=== PATIENT | male | born 1940 | race American Indian/Alaskan Native ===

== ENCOUNTER 2017-06-17 09:30 | Inpatient (IN) | payer MEDICARE, BC ==
[2017-06-17] MEDS ORDERED: Sodium Chloride 0.9% 500 ML IV ONE ×2 (09:45→10:00)
[2017-06-17] MEDS ORDERED: Aspirin 325 mg EC Tablets PO STA (09:45)
--- NOTE | 2017-06-17 09:57 | C.PDOC ---
History Of Present Illness 76 year old male presents to the ED with complaints of left sided chest pain that radiates to the left arm beginning this morning. Patient states he awoke this morning went to the bathroom and upon laying back in bed, the chest pain began. Two hours later the pain self resolved. Patient denies shortness of breath, nausea, vomiting, fever, history of similar symptoms, or history of a stress test. Time Seen by Provider: 06/17/17 09:44 Chief Complaint (Nursing): Chest Pain History Per: Patient History/Exam Limitations: no limitations Onset/Duration Of Symptoms: Hrs Current Symptoms Are (Timing): Gone Quality: "Pain" Associated Symptoms: denies: Nausea, Dyspnea, Diaphoresis, Syncope Modifying Factors: None Alleviating Factors: None Recent travel outside of the [place]: No Additional History Per: Prior Records Past Medical History Reviewed: Historical Data, Nursing Documentation, Vital Signs Vital Signs: Last Vital Signs Temp 98 F 06/17/17 14:06 Pulse 66 06/17/17 14:06 Resp 18 06/17/17 14:06 BP 139/84 06/17/17 14:06 Pulse Ox 97 06/17/17 17:00 - Medical History PMH: Arthritis, HTN, Hypercholesterolemia, TIA (2013) - [facility] Procedures FLUOROSCOPY OF MULT COR ART USING L OSM CONTRAST (07/12/16) FLUOROSCOPY OF RIGHT AND LEFT HEART USING L OSM CONTRAST (07/12/16) MEASURE OF CARDIAC SAMPL & PRESSURE, L HEART, PERC APPROACH (07/12/16) Family History: States: Unknown Family Hx - Social History Hx Tobacco Use: No Hx Alcohol Use: No Hx Substance Use: No - Immunization History Hx Tetanus Toxoid Vaccination: No Hx Influenza Vaccination: No Hx Pneumococcal Vaccination: No Review Of Systems Constitutional: Negative for: Fever, Chills Cardiovascular: Positive for: Chest Pain Gastrointestinal: Negative for: Nausea, Vomiting, Abdominal Pain, Diarrhea Musculoskeletal: Positive for: Arm Pain (left arm pain radiating from chest ) Physical Exam - Physical Exam Appears: Non-toxic, No Acute Distress Skin: Warm, Dry Head: Atraumatic, Normacephalic Eye(s): bilateral: EOMI, left: Other ((post surgical- chronic)) Nose: Normal Oral Mucosa: Moist Neck: Normal ROM, Supple Chest: Symmetrical, No Deformity, No Tenderness Cardiovascular: Rhythm Regular, No Murmur Respiratory: Normal Breath Sounds, No Rales, No Rhonchi, No Stridor, No Wheezing Gastrointestinal/Abdominal: Soft, No Tenderness, No Distention, No Guarding, No Rebound Extremity: Normal ROM, No Tenderness, No Pedal Edema, No Calf Tenderness, Capillary Refill (good capillary refill, less than two seconds ), No Deformity, No Swelling Neurological/Psych: Oriented x3, Normal Speech, Normal Cognition, Normal Cranial Nerves, Normal Motor, Normal Sensation ED Course And Treatment - Laboratory Results Result Diagrams: 06/17/17 09:54 06/17/17 09:54 ECG: Interpreted By Me, Viewed By Me ECG Rhythm: Sinus Rhythm (75 BPM) Interpretation Of ECG: T-wave inversions in lateral leads, V3-V6. Unchanged EKG from 07/12/2016. O2 Sat by Pulse Oximetry: 97 (room air ) - Radiology CXR: Viewed By Me, Read By Radiologist CXR Interpretation: Yes: Other (Impression: Hypoinflation.) Progress Note: EKG, blood work, and CXR were ordered. Patient was given Ecotrin and IV fluids. CXR findings: COMPARISON: Chest x-ray performed 10/16/15. TECHNIQUE: Chest, one view. FINDINGS: Examination limited by habitus and hypoinflation. LUNGS: No focal consolidation. Please note that chest x-ray has limited sensitivity for the detection of pulmonary masses. PLEURA: No significant pleural effusion identified. No definite pneumothorax . CARDIOVASCULAR: Heart size appears top normal. Atherosclerotic calcification of the aortic knob. OSSEOUS STRUCTURES: Degenerative changes of the spine. VISUALIZED UPPER ABDOMEN: Unremarkable. OTHER FINDINGS: None. - Physician Consult Information Time Consulting Physician Contacted: 10:40 (contacted again at 11:15am ) Physician Contacted: Kavin Combs Outcome Of Conversation: Discussed case with Dr. Combs at 11:33am and albino on plan and admission. Disposition - Disposition Disposition: HOSPITALIZED Disposition Time: 10:00 Condition: STABLE - Clinical Impression Clinical Impression: Chest pain - Scribe Statement The provider has reviewed the documentation as recorded by the Scribe Tika Lam All medical record entries made by the Scribe were at my direction and personally dictated by me. I have reviewed the chart and agree that the record accurately reflects my personal performance of the history, physical exam, medical decision making, and the department course for this patient. I have also personally directed, reviewed, and agree with the discharge instructions and disposition.
[2017-06-17 09:59] LABS: BASO # 0.1 K/uL (0.0-0.2); BASO % 1.1 % (0.0-2.0); EOS # 0.2 K/uL (0.0-0.7); EOS % 2.8 % (0.0-4.0); HEMATOCRIT 48.7 % (35.0-51.0); LYMPH # 1.8 K/uL (1.0-4.3); LYMPH % 32.9 % (20.0-40.0); MEAN CELL VOLUME 92.5 fL (80.0-94.0); MEAN CORPUSCULAR HEMOGLOBIN 29.9 pg (27.0-31.0); MEAN CORPUSCULAR HGB CONC 32.4 g/dL (33.0-37.0); MEAN PLATELET VOLUME 6.9 fL (7.2-11.7); MONO # 0.5 K/uL (0.0-0.8); MONO % 8.9 % (0.0-10.0); RED CELL DISTRIBUTION WIDTH 14.7 % (11.5-14.5); WHITE BLOOD COUNT 5.5 K/uL (4.8-10.8)
[2017-06-17 10:16] LABS: CHLORIDE 101 mmol/L (98-107)
[2017-06-17 10:17] LABS: POTASSIUM 4.2 mmol/L (3.6-5.2); SODIUM 139 mmol/L (132-148)
[2017-06-17 10:19] LABS: BILIRUBIN,TOTAL 1.1 mg/dL (0.2-1.3); CARBON DIOXIDE 27 mmol/L (22-30); GFR AFRICAN-AMERICAN > 60
[2017-06-17 10:20] LABS: ALB/GLOB RATIO 1.1 (1.0-2.1); ALKALINE PHOSPHATASE 75 U/L (38-126); ALT/SGPT 41 U/L (21-72); AST/SGOT 31 U/L (17-59); BLOOD UREA NITROGEN 11 mg/dL (9-20); CALCIUM 9.5 mg/dl (8.6-10.4); GLUCOSE,RANDOM 92 mg/dL (75-110); TOTAL PROTEIN 7.4 g/dL (6.3-8.3)
--- NOTE | 2017-06-17 10:28 | RAD ---
HISTORY: chest pain COMPARISON: Chest x-ray performed 10/16/15 TECHNIQUE: Chest, one view. FINDINGS: Examination limited by habitus and hypoinflation. LUNGS: No focal consolidation. Please note that chest x-ray has limited sensitivity for the detection of pulmonary masses. PLEURA: No significant pleural effusion identified. No definite pneumothorax . CARDIOVASCULAR: Heart size appears top normal. Atherosclerotic calcification of the aortic knob. OSSEOUS STRUCTURES: Degenerative changes of the spine. VISUALIZED UPPER ABDOMEN: Unremarkable. OTHER FINDINGS: None. IMPRESSION: Hypoinflation.
[2017-06-17] MEDS: Nitroglycerin 2% Ointment Foilpak UD TOP SCH ×2 (17:58→23:17)
--- NOTE | 2017-06-18 01:08 | CON ---
DATE: CARDIOLOGY CONSULT REASON FOR CONSULTATION: Chest pain. HISTORY OF PRESENT ILLNESS: The patient is a 76-year-old -[place] male who has a history of hypertension. The patient underwent cardiac evaluation in June of last year after he presented because of syncopal episode and EKG was consistent with anterolateral ischemic EKG changes. A cardiac catheterization revealed normal coronary circulation and normal ejection fraction. The echocardiographic study revealed normal left ventricular systolic function with a reduced compliance and mild aortic insufficiency. The patient presents because of chest discomfort and the patient states that he used the bathroom and went to rest in bed, he started to experience left-sided chest pain, but could not characterize it. The patient denies any radiation of his chest pain, lasted few minutes and patient came to the emergency room. The patient denies any associated diaphoresis or shortness of breath. SOCIAL HISTORY: Nonsmoker. Lives with his . MEDICATIONS: The patient received aspirin 325 once a day in the emergency room and normal saline infusion. The patient's home medications include hydralazine 25 mg twice a day, Crestor 10 mg once a day, losartan 50 mg once a day, Bystolic 5 mg daily. REVIEW OF SYSTEMS: No nausea or vomiting. No fever or chills. No recent dizziness or syncope. PHYSICAL EXAMINATION GENERAL: The patient is an elderly male who does not appear to be in any acute distress. VITAL SIGNS: Blood pressure 150/89, heart rate 69, temperature 97.9, and respirations 18. HEENT: Normocephalic. NECK: No JVD. CHEST: Clear. HEART: S1 and S2 regular. ABDOMEN: Soft. EXTREMITIES: No edema. No calf tenderness. LABORATORY DATA: SMA-7: Sodium 139, potassium 4.2, chloride 101, CO2 of 27, glucose 92, BUN 11, creatinine 1.0. One set of troponin is negative. Hemoglobin and hematocrit 15.8 and 48.7. White count and platelet count are within normal limit. EKG revealed sinus rhythm with nonspecific anterolateral Q-wave changes, although the computer reading was ischemic anterolateral EKG changes. ASSESSMENT: 1. Chest pain, rule out myocardial infarction. 2. Hypertension. 3. Abnormal EKG with evidence of nonspecific lateral Q-wave changes. RECOMMENDATIONS: Resume home medications including Crestor 10 mg once a day, hydralazine 25 mg once a day, Cozaar 50 mg once a day, Bystolic 5 mg daily. Monitor daily EKGs and serial cardiac enzymes. Obtain serum D-dimer. I did review the coronary angiography images that were performed in 06/2016 and it did confirm normal coronary circulation and it is unlikely that patient would develop a significant disease in such a short period. Pablito Arnold MD
[2017-06-18] MEDS: Nitroglycerin 2% Ointment Foilpak UD TOP SCH ×3 (06:02→18:49)
--- NOTE | 2017-06-18 12:40 | HP ---
HISTORY OF PRESENT ILLNESS: This patient is a 76-year-old male with history of hypertension, COPD, arthritis, and hyperlipidemia. The patient has a history of TIA in the past. The patient came to the emergency room complaining of chest pain. The patient has stated that he was lying down when he started developing some left-sided chest pain. It stayed for at least 2 hours, and he was prompted by his family to come to the emergency room, which was done, and eventually the patient came to the hospital with chest pain and has received medications, but now at the time of evaluation, the patient denied any chest pain now, but feels somewhat weak. ALLERGIES: THE PATIENT HAS NO KNOWN ALLERGY. PAST MEDICAL HISTORY: On admission, history of hypertension, hyperlipidemia, TIA, osteoarthritis, and obesity. SOCIAL HISTORY: No smoking or alcohol abuse, but the patient apparently used to smoke before. FAMILY HISTORY: No inherited disease. REVIEW OF SYSTEMS: RESPIRATORY: There is some shortness of breath on exertion. CARDIOVASCULAR: The patient had a chest pain before, but now the patient is chest pain free. GASTROINTESTINAL: No nausea or vomiting. GENITOURINARY: No dysuria, but the patient has been having the nocturia 3 to 4 times at night. NEUROLOGIC: The patient feels somewhat weak. PHYSICAL EXAMINATION: GENERAL: The patient is alert, awake, and oriented x3. VITAL SIGNS: Blood pressure 139/84, pulse 66, respirations 18, and temperature 98. HEENT: Head is normocephalic. Mouth: Multiple . NECK: Supple. No JVD. LUNGS: Clear. HEART: Regular rate and rhythm, but there is a split of the first sound noted, which seems new. ABDOMEN: Soft, obese, no tenderness. EXTREMITIES: There is some tenderness of the left hip. There is no edema. NEUROLOGIC: Unsteady gait. LABORATORY DATA: The patient had some tests done. WBC 5.5, hemoglobin 16.8, hematocrit 48.7, and platelets 170. Chemistries: Sodium 139, potassium 4.2, chloride 101, bicarb 27, BUN 11, creatinine 1. Troponin is less than . Pro-BNP is 348. IMPRESSION: 1. Chest pain, acute coronary syndrome, rule out myocardial infarction. 2. Hypertension. 3. Osteoarthritis. 4. Hyperlipidemia. 5. Obesity. The patient will have a cardiology consult with Dr. Arnold. Thank you. Kavin Combs MD
[2017-06-18] MEDS ORDERED: Iodixanol 320 MG/ML 100 ML BOTTLE IV ONE (13:32)
--- NOTE | 2017-06-18 15:00 | CT ---
CTA chest PE protocol Indication: Rule out PE Technique: Contiguous axial images were obtained through the chest with intravenous contrast enhancement. Sagittal and coronal reconstructions were generated and reviewed. This CT exam was performed using 1 or more of the falling dose reduction techniques: Automated exposure control, adjustment of the MAA and/or kV according to patient size, and/or use of iterative reconstruction technique. IV Contrast: 100 mL Visipaque 320 Radiation dose (DLP): 1490.47 MGy-cm. Comparison: Chest x-ray performed 06/17/17 Findings: Visualized portions of the inferior thyroid gland appear unremarkable. The mediastinal and hilar vascular structures appear within normal limits. The heart appears within normal limits of size. No large central or segmental pulmonary embolus evident. No focal consolidation. No pleural effusion. No pneumothorax. Small hiatal hernia. Limited visualized portions of the upper abdomen demonstrates 16.1 cm cystic appearing lesion arising from the right kidney and 6.1 cm left renal cyst. Additional too small to characterize as well a cystic renal hypodensities are identified. Degenerative changes of the spine. Mild kyphosis. Anterior confluent osteophyte formation. Impression: No large central or segmental pulmonary embolus identified. Small hiatal hernia. 16.1 cm cystic appearing lesion arising from the right kidney and 6.1 cm left renal cyst. Additional too small to characterize hypodensities as well as probable cysts noted bilaterally.
[2017-06-18] MEDS: Enoxaparin 120 mg Syringe SC SCH (18:49)
--- NOTE | 2017-06-18 22:51 | PN ---
DATE: SUBJECTIVE: The patient denies chest pain. No reported ventricular arrhythmia. PHYSICAL EXAMINATION: VITAL SIGNS: Blood pressure 142/83, heart rate 71, temperature 98.2, respiration 20. HEENT: Normocephalic. CHEST: Clear. HEART: S1 and S2, regular. ABDOMEN: Soft. EXTREMITIES: No edema. LABORATORY DATA: D-dimer is 775. Chest x-ray was unremarkable except for prominent bronchovascular markings. ASSESSMENT: 1. Chest pain, rule out myocardial infarction. 2. Rule out pulmonary infarction. 3. Hypertension. RECOMMENDATIONS: Continue Bystolic at 5 mg daily, hydralazine 25 mg twice a day, Crestor 10 mg once a day, aspirin 81 mg once day, subcutaneous heparin 5000 units twice a day. I did request stat CT angio of the chest to rule out pulmonary embolism. Obtain 12-lead EKG and one more set of troponin. Pablito Arnold MD
[2017-06-19] MEDS: Nitroglycerin 2% Ointment Foilpak UD TOP SCH ×4 (00:27→17:32)
[2017-06-19] MEDS: Enoxaparin 120 mg Syringe SC SCH ×2 (06:06→17:32)
[2017-06-19 08:02] LABS: BASO % 0.8 % (0.0-2.0); EOS # 0.2 K/uL (0.0-0.7); EOS % 4.3 % (0.0-4.0); LYMPH # 1.9 K/uL (1.0-4.3); LYMPH % 32.5 % (20.0-40.0); MEAN CELL VOLUME 92.1 fL (80.0-94.0); MEAN CORPUSCULAR HEMOGLOBIN 29.7 pg (27.0-31.0); MEAN CORPUSCULAR HGB CONC 32.3 g/dL (33.0-37.0); MEAN PLATELET VOLUME 7.3 fL (7.2-11.7); MONO # 0.4 K/uL (0.0-0.8); MONO % 7.2 % (0.0-10.0); NRBC % 0.2 % (0.0-2.0); WHITE BLOOD COUNT 5.7 K/uL (4.8-10.8)
[2017-06-19 08:36] LABS: CHLORIDE 103 mmol/L (98-107)
[2017-06-19 08:37] LABS: POTASSIUM 3.8 mmol/L (3.6-5.2); SODIUM 136 mmol/L (132-148)
[2017-06-19 08:38] LABS: CHOLESTEROL 132 mg/dL (0-199)
[2017-06-19 08:39] LABS: ALB/GLOB RATIO 1.1 (1.0-2.1); ALKALINE PHOSPHATASE 70 U/L (38-126); AST/SGOT 35 U/L (17-59); BILIRUBIN,TOTAL 0.8 mg/dL (0.2-1.3); BLOOD UREA NITROGEN 13 mg/dL (9-20); CARBON DIOXIDE 25 mmol/L (22-30); GFR AFRICAN-AMERICAN > 60; TOTAL PROTEIN 6.4 g/dL (6.3-8.3)
[2017-06-19 08:40] LABS: ALT/SGPT 39 U/L (21-72); CALCIUM 9.2 mg/dl (8.6-10.4); GLUCOSE,RANDOM 86 mg/dL (75-110)
[2017-06-19 09:25] LABS: THYROID STIMULATING HORMONE 2.03 mIU/L (0.46-4.68)
--- NOTE | 2017-06-19 15:56 | CARD ---
APPROVED REPORT EXAM: Two-dimensional and M-mode echocardiogram with Doppler and color Doppler. Other Information Quality : GoodRhythm : NSR INDICATION Chest Pain Syncope Transient Ishemic Attack RISK FACTORS Hypertension Hyperlipidemia 2D DIMENSIONS IVSd1.6 (0.7-1.1cm)LVDd4.5 (3.9-5.9cm) PWd1.5 (0.7-1.1cm)LVDs3.2 (2.5-4.0cm) FS (%) 27.9 %LVEF (%)54.1 (>50%) M-Mode DIMENSIONS Left Atrium (MM)3.55 (2.5-4.0cm)Aortic Root4.05 (2.2-3.7cm) Aortic Cusp Exc.1.07 (1.5-2.0cm) Mitral Valve MV E Nlntltou46.7cm/sMV A Astaqyty21.9cm/sE/A ratio0.5 TDI E/Lateral E'0.0E/Medial E'0.0 LEFT VENTRICLE The left ventricle is normal size. There is mild concentric left ventricular hypertrophy. The left ventricular systolic function is normal. The left ventricular ejection fraction is within the normal range. There is normal LV segmental wall motion. Transmitral Doppler flow pattern is Grade I-abnormal relaxation pattern. RIGHT VENTRICLE The right ventricle is normal size. The right ventricular systolic function is normal. ATRIA The left atrium size is normal. The right atrium size is normal. AORTIC VALVE The aortic valve is mildly calcified but opens well. There is trace to mild aortic regurgitation. There is no aortic valvular stenosis. MITRAL VALVE The mitral valve is normal in structure. There is no mitral valve regurgitation noted. TRICUSPID VALVE The tricuspid valve is normal in structure. There is no tricuspid valve regurgitation noted. PULMONIC VALVE The pulmonary valve is normal in structure. GREAT VESSELS The aortic root displays mild sclerocalcific changes. The IVC is normal in size and collapses >50% with inspiration. PERICARDIAL EFFUSION There is no pericardial effusion. <Conclusion> There is mild concentric left ventricular hypertrophy. The left ventricular systolic function is normal. There is normal LV segmental wall motion. Transmitral Doppler flow pattern is Grade I-abnormal relaxation pattern. The right ventricular systolic function is normal. There is trace to mild aortic regurgitation. The aortic valve is mildly calcified but opens well. The aortic root displays mild sclerocalcific changes. There is no pericardial effusion.
--- NOTE | 2017-06-19 21:34 | PN ---
SUBJECTIVE: The patient denies any chest pain or shortness of breath. No reported ventricular arrhythmia. PHYSICAL EXAMINATION: VITAL SIGNS: Blood pressure 129/75, heart rate 60, temperature 97.3, respiration 20. HEENT: Normocephalic. CHEST: Clear. HEART: S1 and S2, regular. EXTREMITIES: No edema. LABORATORY DATA: Hemoglobin and hematocrit 14.2 and 44.2, white count and platelet count are within normal limit. SMA-7 is within normal limit. Troponins were as follows starting from second set 3.76, 3.[address] angio of the chest, no central pulmonary embolus. ASSESSMENT: 1. Consider non-ST elevation myocardial infarction. 2. Hypertension. RECOMMENDATIONS: Case was discussed yesterday *------* Dr. Combs. The patient was placed on subcutaneous Lovenox at 110 mg twice a day, yesterday and was started on Plavix 75 mg once a day, Crestor was increased to 40 mg daily, continue current Bystolic and hydralazine. I will review echo cardiac study, cardiac cath was discussed with the patient; however, it could not be performed today because of scheduling issue with the paving and surfacing labourer and will be performed tomorrow at 10 a.m. unless any emergency arise such as recurrent chest pain, ventricular tachycardia, CHF, or hypotension. Pablito Arnold MD
--- NOTE | 2017-06-20 00:26 | PN ---
SUBJECTIVE: Today, the patient is alert and awake and denies any shortness of breath. No chest pain. The patient is comfortably resting in bed. The patient denies any dizziness, but occasional palpitation. PHYSICAL EXAMINATION: VITAL SIGNS: The patient has blood pressure of 142/83, pulse 71, respirations 20, temperature 98.2. HEENT: Head and mouth are with no significant symptoms. NECK: Supple. LUNGS: Clear. HEART: Regular rate and rhythm, but there is a split of the first heart sound. ABDOMEN: Soft, obese. No tenderness. EXTREMITIES: There is no edema. There is some tenderness of the left hip, which is old. LABORATORY DATA: Troponin jumped from 0.01 to 2.70 and the D-dimer is 775. PT is 9 and INR is 1. PLAN: We are going to repeat the troponin stat. CT of the chest that was done earlier shows no significant symptoms of pulmonary embolism. The GI hiatal hernia, and a cystic-appearing lesion arising from the right kidney . Otherwise, there is no pulmonary embolism as described in CT angio. Kavin Combs MD
[2017-06-20] MEDS: Nitroglycerin 2% Ointment Foilpak UD TOP SCH ×4 (00:31→18:03)
[2017-06-20] MEDS: Enoxaparin 120 mg Syringe SC SCH ×2 (05:22→18:03)
[2017-06-20 08:07] LABS: HEMATOCRIT 44.5 % (35.0-51.0); MEAN CELL VOLUME 93.1 fL (80.0-94.0); MEAN CORPUSCULAR HGB CONC 32.3 g/dL (33.0-37.0); RED CELL DISTRIBUTION WIDTH 14.5 % (11.5-14.5); WHITE BLOOD COUNT 6.2 K/uL (4.8-10.8)
[2017-06-20 08:14] LABS: CHLORIDE 103 mmol/L (98-107); SODIUM 137 mmol/L (132-148)
[2017-06-20 08:17] LABS: BLOOD UREA NITROGEN 14 mg/dL (9-20); CALCIUM 8.8 mg/dl (8.6-10.4); CARBON DIOXIDE 24 mmol/L (22-30); GFR AFRICAN-AMERICAN > 60; GLUCOSE,RANDOM 90 mg/dL (75-110)
--- NOTE | 2017-06-20 08:50 | PN ---
DATE: 06/19/2017 SUBJECTIVE: Today the patient is alert and awake. Denies any chest pain and no shortness of breath. No coughing and the patient had a bowel movement. PHYSICAL EXAMINATION: VITAL SIGNS: Blood pressure of 127/75, pulse rate 60 and respirations are 20. HEENT: Head is normocephalic. Mouth is ------ to close. NECK: Supple. LUNGS: Clear. HEART: Regular rate and rhythm, but there is a split of the first heart sound noted, but is disappearing today as comparison to yesterday. ABDOMEN: Soft, obese and nontender. EXTREMITIES: There is no edema, but there is tenderness in the left hip. LABORATORY DATA: Blood work done shows WBC of 5.7, hemoglobin of 14.3, hematocrit 44 and platelets 168. Chemistries: Sodium 136, potassium 3.8, chloride 103, bicarb 25, BUN 13, creatinine 1.1 and glucose 86. The troponin went down to 2 from 3.01. Albumin is 3.3, globulin 3.1, ------, LDH 68, HDL is 64 and TSH is 2.03. PLAN: The patient has a echocardiogram and echocardiogram done today, so there is a good ejection fraction of ------ and there is a mild concentric left ventricular hypertrophy and left ventricular systolic function is normal and normal LV segmental wall motion. So, case was discussed with Dr. Arnold, network intelligence analyst. The plan is cardiac catheterization in the morning and also the case was reviewed and discussed with Rakel Castro, nurse practitioner and the patient is on Lovenox, Plavix, and aspirin. Kavin Combs MD
[2017-06-20] MEDS ORDERED: Pneumococcal 23-Valent Vaccine IM ONE ×2 (10:00→14:00)
[2017-06-20] MEDS ORDERED: Midazolam 2 MG/2 ML VIAL ONE (10:32)
[2017-06-20] MEDS ORDERED: Iohexol 350mg/ml 100 ML ONE (10:34)
[2017-06-20 16:02] VITALS: RESP 20; O2SAT 95
--- NOTE | 2017-06-20 17:49 | CARD ---
APPROVED REPORT EKG Measurement Heart [id number] ID [id number] <Conclusion> Sinus rhythm with 1st degree AV block Left anterior fascicular block T wave abnormality, consider anterolateral ischemia Abnormal ECG
[2017-06-20 20:33] LABS: TOTAL PSA 0.4 ng/mL (<=4.0)
--- NOTE | 2017-06-20 21:52 | PN ---
DATE: SUBJECTIVE: Today, the patient is alert and awake, denied any shortness of breath. No chest pain. No palpitation. The patient is due for a cardiac catheterization today. PHYSICAL EXAMINATION VITAL SIGNS: The patient has a blood pressure of 145/78, pulse 65, respiration 20 and temperature 97.6 NECK: Supple. No JVD. LUNGS: Clear. HEART: Regular rate and rhythm. Positive murmur. ABDOMEN: Soft and nontender. Positive bowel sounds. EXTREMITIES: There is no edema, but there is some tenderness to the left heel. LABORATORY DATA: The patient had blood tests done. WBC is 6.2, hemoglobin 14.4, hematocrit 44.5 and platelet 177. Chemistry showed sodium of 137, potassium 4, chloride 103, bicarb is 24, BUN is 14 and creatinine is 1. Also today, the patient had cardiac catheterization done today by Dr. Arnold, complaint evaluation supervisor and apparently there is no evidence of stenosis or blockage, so the coronaries are clear. PLAN: We are going to medication. The patient will be on aspirin and Plavix. The patient will be discharged home soon, possibly lock up worker. Kavin Combs MD
--- NOTE | 2017-06-20 22:43 | CARDCATH ---
PROCEDURE DATE: The patient is a 76-year-old male who has a history of hypertension, presented with chest pain. Troponin was elevated. CT angio of the chest revealed no evidence of central pulmonary embolism. The patient had cardiac catheterization in June of last year that was unremarkable. Cardiac catheterization was recommended again. The procedure and its risks were fully explained to the patient, who understood them and agreed for the procedure. PROCEDURES: 1. 1% Lidocaine, a 6-inch sheath was placed at right femoral artery. 2. Left and right coronary angiography performed with 6-inch JL4 and JR4 diagnostic catheter. 3. Left angiogram and aortogram were performed with a 6-inch pigtail catheter. The patient tolerated the procedure well without any complications. ANGIOGRAPHIC FINDINGS: Selective injection of the left coronary artery revealed left main to be a normal vessel, left main bifurcated into medium size LAD and medium size circumflex artery. 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 Selective injection of the right coronary artery revealed a medium size codominant vessel, otherwise angiographically unremarkable. Left ventriculogram performed in the [place]DE[place] projection revealed mild apical hypokinesis. Overall ejection fraction is maintained at 55%. Aortography performed in [place] projection revealed dilated aortic root and arch. There was no evidence of aortic dissection. CONCLUSION: Unremarkable coronary circulation and normal ejection fraction. CONDITION: Continue current antiplatelet therapy. A possibility of small vessel disease cannot be completely excluded. In the mean time, I will request venous Doppler of the lower extremities. Pablito Arnold MD
[2017-06-21] MEDS: Nitroglycerin 2% Ointment Foilpak UD TOP SCH ×2 (01:02→05:57)
[2017-06-21] MEDS: Enoxaparin 120 mg Syringe SC SCH (05:58)
[2017-06-21 07:55] LABS: MEAN CELL VOLUME 92.4 fL (80.0-94.0); MEAN CORPUSCULAR HEMOGLOBIN 30.6 pg (27.0-31.0); MEAN CORPUSCULAR HGB CONC 33.1 g/dL (33.0-37.0); MEAN PLATELET VOLUME 7.1 fL (7.2-11.7); WHITE BLOOD COUNT 6.3 K/uL (4.8-10.8)
[2017-06-21 08:03] LABS: POTASSIUM 4.1 mmol/L (3.6-5.2)
[2017-06-21 08:06] LABS: CALCIUM 9.3 mg/dl (8.6-10.4)
[2017-06-21 08:39] VITALS: TEMP 97.9
--- NOTE | 2017-06-21 11:29 | CP.PCM.PN ---
Subjective - Date & Time of Evaluation Date of Evaluation: 06/21/17 Time of Evaluation: 11:29 Objective - Vital Signs/Intake and Output Vital Signs (last 24 hours): Temp Pulse Resp BP Pulse Ox 97.9 F 65 20 113/67 95 06/21/17 07:00 06/21/17 07:00 06/21/17 07:00 06/21/17 07:00 06/21/17 07:00 - Medications Medications: Current Medications Aspirin (Ecotrin) 81 mg PO DAILY [facility] Last Admin: 06/21/17 10:43 Dose: 81 mg Clopidogrel Bisulfate (Plavix) 75 mg PO DAILY [facility] Last Admin: 06/21/17 10:43 Dose: 75 mg Enoxaparin Sodium (Lovenox) 110 mg SC Q12H [facility] Last Admin: 06/21/17 05:58 Dose: 110 mg Hydralazine HCl (Apresoline) 25 mg PO BID [facility] Last Admin: 06/21/17 10:43 Dose: 25 mg Losartan Potassium (Cozaar) 50 mg PO DAILY [facility] Last Admin: 06/21/17 10:43 Dose: 50 mg Nebivolol (Bystolic) 5 mg PO DAILY [facility] Last Admin: 06/21/17 10:42 Dose: 5 mg Nitroglycerin (Nitro-Bid 2% Oint) 1 ea TOP Q6 [facility] Last Admin: 06/21/17 05:57 Dose: 1 ea Rosuvastatin Calcium (Crestor) 40 mg PO HS [facility] Last Admin: 06/20/17 21:17 Dose: 40 mg - Labs Labs: 06/21/17 07:42 06/21/17 07:42 PT 11.0 SECONDS (9.7-12.2) 06/17/17 14:17 INR 1.0 06/17/17 14:17 APTT 24 SECONDS (21-34) 06/17/17 14:17
--- NOTE | 2017-06-21 11:33 | CP.PCM.PN ---
Subjective - Date & Time of Evaluation Date of Evaluation: 06/21/17 Time of Evaluation: 11:32 - Subjective Subjective: PT SEEN BY DR. KELLEY DURING ROUNDS WITH COMMUTATOR TESTER. CLEARED FOR D/C BY CARDIOLOGY. TO BE D/C HOME TODAY WITH ASA AND PLAVIX PER DR. RANDALL. CONTINUE ALL OTHER HOME MEDS AND HE WILL SEE DR. KELLEY NEXT WEEK IN OFFICE FOR A F/U. NO FURTHER ORDERS. Objective - Vital Signs/Intake and Output Vital Signs (last 24 hours): Temp Pulse Resp BP Pulse Ox 97.9 F 65 20 113/67 95 06/21/17 07:00 06/21/17 07:00 06/21/17 07:00 06/21/17 07:00 06/21/17 07:00 - Medications Medications: Current Medications Aspirin (Ecotrin) 81 mg PO DAILY COUNTS INCLUDE 234 BEDS AT THE [facility] Last Admin: 06/21/17 10:43 Dose: 81 mg Clopidogrel Bisulfate (Plavix) 75 mg PO DAILY COUNTS INCLUDE 234 BEDS AT THE [facility] Last Admin: 06/21/17 10:43 Dose: 75 mg Enoxaparin Sodium (Lovenox) 110 mg SC Q12H MICHAEL Last Admin: 06/21/17 05:58 Dose: 110 mg Hydralazine HCl (Apresoline) 25 mg PO BID MICHAEL Last Admin: 06/21/17 10:43 Dose: 25 mg Losartan Potassium (Cozaar) 50 mg PO DAILY MICHAEL Last Admin: 06/21/17 10:43 Dose: 50 mg Nebivolol (Bystolic) 5 mg PO DAILY COUNTS INCLUDE 234 BEDS AT THE [facility] Last Admin: 06/21/17 10:42 Dose: 5 mg Nitroglycerin (Nitro-Bid 2% Oint) 1 ea TOP Q6 MICHAEL Last Admin: 06/21/17 05:57 Dose: 1 ea Rosuvastatin Calcium (Crestor) 40 mg PO HS COUNTS INCLUDE 234 BEDS AT THE [facility] Last Admin: 06/20/17 21:17 Dose: 40 mg - Labs Labs: 06/21/17 07:42 06/21/17 07:42 PT 11.0 SECONDS (9.7-12.2) 06/17/17 14:17 INR 1.0 06/17/17 14:17 APTT 24 SECONDS (21-34) 06/17/17 14:17
[2017-06-21 16:30] VITALS: BP 121/74; PULSE 66
--- NOTE | 2017-06-22 07:39 | PN ---
DATE: SUBJECTIVE: Today, the patient is alert and awake. Denies any chest pain. No palpitations, no dizziness and no shortness of breath. He is also complaining of some pain to the right hip. PHYSICAL EXAMINATION: VITAL SIGNS: The patient has blood pressure of 121/74, pulse 66, respirations 20, temperature 97.9. HEENT: Head is normocephalic. Mouth is moist, but . NECK: Supple, no JVD. CARDIOPULMONARY: Regular rate and rhythm. Positive murmur. LUNGS: Clear. ABDOMEN: Soft, obese, nontender, no organomegaly and positive bowel sounds. EXTREMITIES: There is no edema, but there is some tenderness in the right hip with motion and also the right femoral artery ultrasound was done and there is no evidence of aneurysm. ASSESSMENT AND PLAN: The patient has a cardiac catheterization yesterday, which showed no major stenosis and coronaries were clean, so the plan is that to discharge the patient today and if cleared by the commissioning specialist. I mentioned that this patient was seen with Rakel Castro,nurse practitioner early this morning. Kavin Combs MD
--- NOTE | 2017-06-22 18:36 | DS ---
This is a 76-year-old male with history of arthritis, hypertension and history of TIA in the past. The patient came to the emergency room. The patient was complaining of a left-sided chest pain for the past hour. The patient was admitted. The patient had a troponin done, but , the troponin was elevated at the range of 3 plus. A cardiology consult has been found a high troponin and the plan was made to have a cardiac catheterization. In the meantime, the patient was receiving medications to control the blood pressure and consider to monitor the heart. The patient has a cardiac catheterization done yesterday which was negative for a coronary artery stenosis. Also, the patient had a Doppler scan of the lower extremity which failed to show any blood clot or DVT. So, at this point, the patient is doing pretty well, stable enough to be discharge and Dr. Arnold was contacted and by the nurse practitioner Rakel Castro and the patient will be discharge home today. Kavin Combs MD
--- NOTE | 2017-06-26 09:37 | VASCLAB ---
PROCEDURE: Lower Extremity Venous Duplex Exam. HISTORY: r/o DVT PRIORS: None. TECHNIQUE: Bilateral common femoral, femoral, popliteal and posterior tibial, peroneal and great saphenous veins were evaluated. Flow was assessed with color Doppler, compressibility, assessment of phasic flow and augmentation response. Report prepared by [employer] Rivas FINDINGS: RIGHT: 1. Common Femoral Vein: 1.1. Unable to examine/ bandaged groin area. 2. Femoral Vein: 2.1. Compressibility - Fully compressible: Thrombus - None : Flow - Phasic: Augmentation -Normal: Reflux - None. 3. Popliteal Vein: 3.1. Compressibility - Fully compressible: Thrombus - None : Flow - Phasic: Augmentation -Normal: Reflux - None. 4. Posterior Tibial Vein: 4.1. Compressibility - Fully compressible: Thrombus - None: Flow - Phasic: Augmentation -Normal: Reflux - None. 5. Peroneal Vein: 5.1. Compressibility - Fully compressible: Thrombus - None: Flow - Phasic: Augmentation -Normal: Reflux - None. 6. Great Saphenous Vein: 6.1. Compressibility - Fully compressible: Thrombus - None: Flow - Phasic: Augmentation - Normal: Reflux - None. LEFT: 1. Common Femoral Vein: 1.1. Compressibility - Fully compressible: Thrombus - None: Flow - Phasic: Augmentation -Normal: Reflux - None. 2. Femoral Vein: 2.1. Compressibility - Fully compressible: Thrombus - None: Flow - Phasic: Augmentation -Normal: Reflux - None. 3. Popliteal Vein: 3.1. Compressibility - Fully compressible: Thrombus - None : Flow - Phasic: Augmentation -Normal: Reflux - None. 4. Posterior Tibial Vein: 4.1. Compressibility - Fully compressible: Thrombus - None: Flow - Phasic: Augmentation -Normal: Reflux - None. 5. Peroneal Vein: 5.1. Compressibility - Fully compressible: Thrombus - None: Flow - Phasic: Augmentation -Normal: Reflux - None. 6. Great Saphenous Vein: 6.1. Compressibility - Fully compressible: Thrombus - None: Flow - Phasic: Augmentation - Normal: Reflux - None. OTHER FINDINGS: Right: None significant. Left: None significant. IMPRESSION: Right: No evidence of deep or superficial vein thrombosis of the right lower extremity, for the examined veins. Normal valve function noted of the right side. Left: No evidence of deep or superficial vein thrombosis of the left lower extremity. Normal valve function noted of the left side.
--- NOTE | 2017-07-06 18:47 | CARD ---
APPROVED REPORT EKG Measurement Heart [id number] TX [id number] <Conclusion> Sinus rhythm with 1st degree AV block Incomplete right bundle branch block Left anterior fascicular block Anterior infarct, age undetermined Abnormal ECG
== END 2017-06-21 13:00 | disposition home or self-care (01) | DRG 287 ==
LOC: C.ER 09:30 → C.9E 11:34 → C.5T 17:55 → OBSVTOIN 06-19 09:48
PROVIDERS: ADMIT Specialist; ATTEND Specialist
PROC: B2151ZZ Fluoroscopy of Left Heart using Low Osmolar Contrast (ICD-10-PCS; 2017-06-20)
PROC: B2111ZZ Fluoroscopy of Multiple Coronary Arteries using Low Osmolar Contrast (ICD-10-PCS; 2017-06-20)
PROC: B3101ZZ Fluoroscopy of Thoracic Aorta using Low Osmolar Contrast (ICD-10-PCS; 2017-06-20)
PROC: 4A023N7 Measurement of Cardiac Sampling and Pressure, Left Heart, Percutaneous Approach (ICD-10-PCS; principal; 2017-06-20 10:00)
DX: I24.9 Acute ischemic heart disease, unspecified (principal); J44.9 Chronic obstructive pulmonary disease, unspecified; I35.1 Nonrheumatic aortic (valve) insufficiency; E78.00 Pure hypercholesterolemia, unspecified; I10 Essential (primary) hypertension; M19.90 Unspecified osteoarthritis, unspecified site; E66.9 Obesity, unspecified; Z87.891 Personal history of nicotine dependence; I77.810 Thoracic aortic ectasia; Z86.73 Personal history of transient ischemic attack (TIA), and cerebral infarction without residual deficits; Z68.37 Body mass index [BMI] 37.0-37.9, adult

== ENCOUNTER 2019-01-07 19:08 | Inpatient (IN) | payer BC, MEDICARE ==
--- NOTE | 2019-01-07 19:23 | C.PDOC ---
History Of Present Illness Patient is a 78 year old male who presents to the ED after suffering a syncopal episode this morning. Patient states that he hasn't been feeling well and while at his computer today he got light headed and had a syncopal episode when getting up. Patient states that his son was knocking on the door, but patient was up by the time his son came in. He notes positive LOC and is also c/o left sided rib discomfort. He denies any CP, SOB, visual changes, weakness, or palpitations. Time Seen by Provider: 01/07/19 19:22 Chief Complaint (Nursing): Syncope History Per: Patient History/Exam Limitations: no limitations Onset/Duration Of Symptoms: Hrs (monring ) Current Symptoms Are (Timing): Still Present (left rib discomfort) Severity: Moderate Pain Scale Rating Of: 4 Reports Recently: Treated By A Physician Recent travel outside of the [place]: No Additional History Per: Patient Past Medical History Reviewed: Historical Data, Nursing Documentation, Vital Signs Vital Signs: Last Vital Signs Temp 98.1 F 01/07/19 19:12 Pulse 83 01/07/19 19:12 Resp 16 01/07/19 19:12 BP 137/64 01/07/19 19:12 Pulse Ox 96 01/07/19 19:12 - Medical History PMH: Arthritis, HTN, Hypercholesterolemia, TIA (2013) Denies: Chronic Kidney Disease Surgical History: No Surg Hx - [facility] Procedures FLUOROSCOPY OF LEFT HEART USING LOW OSMOLAR CONTRAST (06/19/17) FLUOROSCOPY OF MULT COR ART USING L OSM CONTRAST (06/19/17) FLUOROSCOPY OF RIGHT AND LEFT HEART USING L OSM CONTRAST (07/12/16) FLUOROSCOPY OF THORACIC AORTA USING LOW OSMOLAR CONTRAST (06/19/17) MEASURE OF CARDIAC SAMPL & PRESSURE, L HEART, PERC APPROACH (06/19/17) Family History: States: No Known Family Hx - Social History Hx Tobacco Use: No Hx Alcohol Use: No Hx Substance Use: No - Immunization History Hx Tetanus Toxoid Vaccination: No Hx Influenza Vaccination: No Hx Pneumococcal Vaccination: No Review Of Systems Eyes: Negative for: Vision Change Cardiovascular: Negative for: Chest Pain, Palpitations Respiratory: Positive for: Other (left sided rib discomfort). Negative for: Shortness of Breath Neurological: Positive for: Other (LOC). Negative for: Weakness Physical Exam - Physical Exam Appears: Non-toxic, No Acute Distress, Other (no obvious deformity, speaking in full sentences) Skin: Warm, Dry Head: Atraumatic, Normacephalic Eye(s): bilateral: Normal Inspection Oral Mucosa: Moist Teeth: Edentulous Neck: Trachea Midline, Supple Chest: Symmetrical, Tenderness (right back ribs) Cardiovascular: Rhythm Regular Respiratory: No Rales, No Rhonchi, No Wheezing, Other (left rib discomfort. no crepitus ) Gastrointestinal/Abdominal: Soft, No Tenderness Back: No CVA Tenderness Extremity: Normal ROM, Pedal Edema (trace) Extremity: Bilateral: Atraumatic, Normal Color And Temperature, Normal ROM Pulses: Left Dorsalis Pedis: Normal, Right Dorsalis Pedis: Normal Neurological/Psych: Oriented x3 Gait: Steady ED Course And Treatment - Laboratory Results Result Diagrams: 01/07/19 19:49 01/07/19 19:49 ECG: Interpreted By Me, Viewed By Me ECG Rhythm: Sinus Rhythm (85), Nonspecific Changes (occ pvc's) O2 Sat by Pulse Oximetry: 96 (on RA) Pulse Ox Interpretation: Normal - CT Scan/US CT Head Other Rad Studies (CT/US): Read By Radiologist, Radiology Report Reviewed CT/US Interpretation: IMPRESSION: 1. There is generalized parenchymal atrophy n oted as demonstrated by symmetrical dilatation of ventricles and sulci. 2. Chronic periventricular and subcortical microvascular disease is seen. 3. 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 4. Right sphenoid sinusitis is seen. 5. No acute intracranial pathology. CT Chest Other Rad Studies (CT/US): Read By Radiologist, Radiology Report Reviewed CT/US Interpretation: IMPRESSION: 1. There is a nondisplaced fracture involving the posterior right 10th rib. 2. Mild scattered upper lobe predominant emphysema is present. 3. Scarring is seen in the right middle lobe, lingula and lung bases. 4. Several nonobstructing left renal calculi. 5. Bilateral renal cysts including a very large incompletely visualized cyst in the right kidney measuring approximately 16 x 13 cm. Progress Note: Plan: CAT Chest. CAT Head. EKG. Labs. Urinalysis Disposition Discussed With : Kavin Combs Comment: accepted the pt on his service and took over the care at 8:39 PM Doctor Will See Patient In The: Hospital Counseled Patient/Family Regarding: Studies Performed, Diagnosis - Disposition Disposition: HOSPITALIZED Disposition Time: 19:22 Condition: FAIR Forms: [facility] (Romansh) - POA Present On Arrival: None, Falls Or Trauma - Clinical Impression Clinical Impression: Syncope, Fracture, rib - Scribe Statement The provider has reviewed the documentation as recorded by the Zandra Stovall All medical record entries made by the [place] were at my direction and personally dictated by me. I have reviewed the chart and agree that the record accurately reflects my personal performance of the history, physical exam, medical decision making, and the department course for this patient. I have also personally directed, reviewed, and agree with the discharge instructions and disposition. Decision To Admit - Pt Status Changed To: Hospital Disposition Of: Inpatient - Admit Certification Admit to Inpatient:: After my assessment, the patient will require hospitalization for at least two midnights. This is because of the severity of symptoms shown, intensity of services needed, and/or the medical risk in this patient being treated as an outpatient. - InPatient: Physician Admission Certification: I certify that this patient requires 2 or more midnights of care for the following reason:: After my assessment, the patient will require hospitalization for at least two midnights. This is because of the severity of symptoms shown, intensity of services needed, and/or the medical risk in this patient being treated as an outpatient. - . Bed Request Type: Telemetry Admitting Physician: Kavin Combs Patient Diagnosis: Syncope, Fracture, rib
[2019-01-07 19:56] LABS: BASO # 0.1 K/uL (0.0-0.2); EOS # 0.1 K/uL (0.0-0.7); EOS % 0.9 % (0.0-4.0); LYMPH # 1.1 K/uL (1.0-4.3); LYMPH % 9.1 % (20.0-40.0); MEAN CELL VOLUME 100.1 fL (80.0-94.0); MEAN CORPUSCULAR HEMOGLOBIN 31.4 pg (27.0-31.0); MEAN CORPUSCULAR HGB CONC 31.4 g/dL (33.0-37.0); MEAN PLATELET VOLUME 7.5 fL (7.2-11.7); MONO # 0.8 K/uL (0.0-0.8); MONO % 6.3 % (0.0-10.0); NEUT # 9.8 K/uL (1.8-7.0); NEUT % 82.7 % (50.0-75.0); PLATELET COUNT 198 K/uL (130-400); RBC 4.45 Mil/uL (4.40-5.90); RED CELL DISTRIBUTION WIDTH 14.9 % (11.5-14.5); WHITE BLOOD COUNT 11.9 K/uL (4.8-10.8)
[2019-01-07 20:07] LABS: INR 1.1; PROTHROMBIN TIME 11.7 SECONDS (9.7-12.2)
[2019-01-07 20:08] LABS: ALB/GLOB RATIO 1.1 (1.0-2.1); ALBUMIN 4.2 g/dL (3.5-5.0); ALT/SGPT 21 U/L (21-72); AST/SGOT 35 U/L (17-59); BLOOD UREA NITROGEN 15 mg/dL (9-20); CALCIUM 9.8 mg/dl (8.6-10.4); GFR NON-AFRICAN AMERICAN 49
[2019-01-07] MEDS ORDERED: Nitroglycerin 2% Ointment Foilpak UD TOP ONE (20:48)
[2019-01-07] MEDS: Nitroglycerin 2% Ointment Foilpak UD TOP SCH (20:56)
[2019-01-07 23:35] LABS: PLATELET ESTIMATE NORMAL (NORMAL)
[2019-01-07 23:36] LABS: BANDS 2 % (0-2); EOSINOPHIL 1 % (0-4); LYMPHOCYTE 10 % (20-40); MONOCYTE 7 % (0-10); NEUTROPHIL 80 % (50-75); TOTAL CELLS COUNTED 100
[2019-01-07 23:37] LABS: ANISOCYTOSIS SLIGHT; HYPERSEGMENTATION PRESENT; LARGE PLATELETS PRESENT; MICROCYTOSIS SLIGHT; POIKILOCYTOSIS SLIGHT; SMUDGE CELLS PRESENT; SPHEROCYTES SLIGHT
[2019-01-08] MEDS: Nitroglycerin 2% Ointment Foilpak UD TOP SCH ×4 (02:42→21:44)
[2019-01-08 09:22] LABS: BASO % 0.5 % (0.0-2.0); EOS % 0.2 % (0.0-4.0); LYMPH # 1.5 K/uL (1.0-4.3); MEAN CELL VOLUME 99.6 fL (80.0-94.0); MEAN CORPUSCULAR HEMOGLOBIN 32.7 pg (27.0-31.0); MEAN CORPUSCULAR HGB CONC 32.9 g/dL (33.0-37.0); MEAN PLATELET VOLUME 7.9 fL (7.2-11.7); MONO # 0.8 K/uL (0.0-0.8); MONO % 8.4 % (0.0-10.0); NEUT # 7.7 K/uL (1.8-7.0); NEUT % 75.9 % (50.0-75.0); NRBC % 0.1 % (0.0-2.0); RBC 3.98 Mil/uL (4.40-5.90); WHITE BLOOD COUNT 10.1 K/uL (4.8-10.8)
[2019-01-08 09:43] LABS: ALB/GLOB RATIO 1.1 (1.0-2.1); ALBUMIN 3.7 g/dL (3.5-5.0); ALT/SGPT 20 U/L (21-72); AST/SGOT 32 U/L (17-59); BLOOD UREA NITROGEN 16 mg/dL (9-20); CALCIUM 9.1 mg/dl (8.6-10.4); GFR NON-AFRICAN AMERICAN 59; HDL CHOLESTEROL 52 mg/dL (30-70)
[2019-01-08 09:56] LABS: LDL CHOLESTEROL 49 mg/dL (0-129)
--- NOTE | 2019-01-08 11:42 | CT ---
Date of service: 01/07/2019 CT chest without IV contrast Indication: att left ribs, fall, pain Technique: Contiguous axial images were obtained through the chest without intravenous contrast enhancement. Sagittal and coronal reconstructions were generated and reviewed. This CT exam was performed using 1 or more of the following dose reduction techniques: Automated exposure control, adjustment of the MAA and/or kV according to patient size, and/or use of iterative reconstruction technique. Radiation dose (DLP): 1023.84 MGy-cm. Comparison: Contrast-enhanced chest CT performed 06/18/17 Findings: Visualized portions of the inferior thyroid gland appear heterogeneous. The enhance mediastinal and hilar vascular structures appear grossly unremarkable. The heart appears within normal limits of size. Dense atherosclerotic calcifications of the aorta. Sub cm mediastinal lymph nodes, nonspecific. Mild scattered emphysematous changes. Mild bibasilar atelectasis. No focal consolidation. No pleural effusion. No pneumothorax. Limited visualization of the noncontrast upper abdomen: Partially imaged cystic mass in the right upper quadrant measuring greater than 14 cm in cc dimension and approximately 12.8 cm in transverse dimension. 5.1 x 5.0 cm left renal cyst. Nonobstructing left renal calculi. Degenerative changes of the spine including confluent anterior osteophyte formation. Mild kyphosis. Left 9th, and possibly 10th rib fracture deformities. Impression: Evidence of left 9th and possibly 10th rib fracture deformities, nondisplaced. Scattered emphysematous changes. Mild bibasilar atelectasis. Heterogeneous appearance of the thyroid gland. Recommend correlation with outpatient thyroid ultrasound if indicated. Limited visualization of the noncontrast upper abdomen: Partially imaged cystic mass in the right upper quadrant measuring greater than 14 cm in cc dimension and approximately 12.8 cm in transverse dimension. 5.1 x 5.0 cm left renal cyst. Nonobstructing left renal calculi. Additional findings as above. Preliminary impression was provided by [email or web address].
--- NOTE | 2019-01-08 12:25 | CT ---
Date of service: 01/07/2019 PROCEDURE: CT HEAD WITHOUT CONTRAST. HISTORY: syncope COMPARISON: Comparison made with MRI of the brain dated 07/12/20 16. TECHNIQUE: Axial computed tomography images were obtained through the head/brain without intravenous contrast. Radiation dose: Total exam DLP = 1133.13 mGy-cm. This CT exam was performed using one or more of the following dose reduction techniques: Automated exposure control, adjustment of the mA and/or kV according to patient size, and/or use of iterative reconstruction technique. FINDINGS: HEMORRHAGE: No acute parenchymal, subarachnoid or extra-axial hemorrhage. BRAIN: There is a discrete chronic right CONING MACHINE OPERATOR territory infarct which is new since prior MRI of the brain. Also again noted is a discrete right superior frontal subcortical infarct. There is moderate to fairly significant diffuse/confluent chronic white matter ischemic changes seen extending peripherally into the deep and subcortical white matter both cerebral hemispheres which appears to have progressed since prior study.. Small chronic left cerebellar infarct is also present. Note that the possibility of a small hyperacute infarct cannot be excluded on this study and therefore clinical correlation recommended. Moderate generalized volume loss. No obvious parenchymal mass or collection seen on this noncontrast study. Minor vascular calcifications both carotid siphons VENTRICLES: No obstructive hydrocephalus. CALVARIUM: Unremarkable. PARANASAL SINUSES: Small focal area polypoid like mucosal thickening right chamber sphenoid sinus MASTOID AIR CELLS: Unremarkable as visualized. No inflammatory changes. 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 Chronic right superior frontal subcortical infarct and small left cerebellar chronic infarct unchanged. Moderate to significant chronic white matter ischemic changes progressed since prior study. Moderate generalized volume loss.
--- NOTE | 2019-01-08 12:44 | CARD ---
APPROVED REPORT Date of service: 01/07/2019 EKG Measurement Heart [id number] <Conclusion> Sinus rhythm with frequent premature ventricular complexes and fusion complexes Possible Left atrial enlargement Left axis deviation Nonspecific T wave abnormality Prolonged QT Abnormal ECG
--- NOTE | 2019-01-08 12:53 | CARD ---
APPROVED REPORT Date of service: 01/08/2019 EXAM: Two-dimensional and M-mode echocardiogram with Doppler and color Doppler. Other Information Quality : GoodRhythm : INDICATION Chest Pain Syncope RISK FACTORS Hypertension Hyperlipidemia 2D DIMENSIONS IVSd1.1 (0.7-1.1cm)LVDd5.6 (3.9-5.9cm) PWd1.2 (0.7-1.1cm)LA Scapsg86 (18-58mL) LVDs3.5 (2.5-4.0cm)FS (%) 37.3 % LVEF (%)66.6 (>50%)LVEF (Barth's)52.29 % M-Mode DIMENSIONS Left Atrium (MM)2.61 (2.5-4.0cm)IVSd1.00 (0.7-1.1cm) Aortic Root4.00 (2.2-3.7cm)LVDd6.25 (4.0-5.6cm) Aortic Cusp Exc.2.00 (1.5-2.0cm)PWd0.94 (0.7-1.1cm) FS (%) 30 %LVDs4.40 (2.0-3.8cm) LVEF (%)56 (>50%) Aortic Valve AI P 1/2 [id number] Mitral Valve MV E Gvpfipua12.2cm/sMV A Hxdsvsdn762.0cm/sE/A ratio0.6 TDI Lateral E' Peak V6.29cm/sMedial E' Peak V5.13cm/sE/Lateral E'12.1 E/Medial E'14.9 LEFT VENTRICLE The left ventricle is normal size. There is normal left ventricular wall thickness. Left ventricle systolic function is low normal. The Ejection Fraction is 50-55%. There is normal LV segmental wall motion. Transmitral Doppler flow pattern is Grade I-abnormal relaxation pattern. There is no ventricular septal defect visualized. RIGHT VENTRICLE The right ventricle is normal size. The right ventricular systolic function is normal. ATRIA The left atrium is mildly dilated. The right atrium size is normal. AORTIC VALVE The aortic valve is mildly to moderately sclerotic. The aortic valve is tri-cuspid. There is moderate aortic regurgitation. There is no aortic valvular stenosis. MITRAL VALVE The mitral valve is normal in structure. There is no evidence of mitral valve prolapse. Mitral regurgitation is trace. TRICUSPID VALVE The tricuspid valve is normal in structure. There is trace tricuspid regurgitation. There is no pulmonary hypertension. PULMONIC VALVE The pulmonary valve is normal in structure. There is trace pulmonic valvular regurgitation. GREAT VESSELS The aortic root is normal in size. The ascending aorta is normal in size. The IVC is normal in size and collapses >50% with inspiration. PERICARDIAL EFFUSION There is no pericardial effusion. <Conclusion> Left ventricle systolic function is low normal. The Ejection Fraction is 50-55%. Transmitral Doppler flow pattern is Grade I-abnormal relaxation pattern. There is moderate aortic regurgitation. Mitral regurgitation is trace.
[2019-01-08] MEDS ORDERED: Gadodiamide 287 mg/ml 20 ml IV ONE (14:00)
--- NOTE | 2019-01-08 15:42 | MRI ---
Date of service: 01/08/2019 PROCEDURE: MRI BRAIN WITH AND WITHOUT CONTRAST HISTORY: SYNCOPE COMPARISON: Comparison made with CT scan and MRI brain dated 01/07/2019 and 07/12/2016 respectively. TECHNIQUE: Multiplanar, multisequence MR images of the brain were obtained with and without intravenous contrast enhancement. FINDINGS: Note that the study is limited by artifact. HEMORRHAGE: No acute parenchymal, subarachnoid or extra-axial hemorrhage. No evidence of hemosiderin deposition identified on gradient echo weighted sequence. DWI: No evidence of an acute or early subacute infarction. BRAIN PARENCHYMA: Redemonstrated is chronic infarct within the distribution of the right posterior cerebral artery better visualized as compared to recent CT scan and new since prior MRI. Chronic right posterior frontoparietal subcortical white matter infarct with moderate diffuse and confluent chronic periventricular white matter ischemic changes which extend peripherally into the deep and subcortical white matter both cerebral hemispheres. Scattered chronic bilateral basal nuclei lacunar type infarcts. Small chronic infarct change in the left cerebellum also again noted. Moderate generalized volume loss. No enhancing parenchymal nor extra-axial masses or collections seen on this noncontrast study. No evidence of unusual meningeal enhancement ENHANCEMENT: No abnormal intracranial enhancement as detailed above.. VENTRICLES: No obstructive CRANIUM: Unremarkable. ORBITS: Changes of left-sided cataract surgery again noted. PARANASAL SINUSES/MASTOIDS: Polypoid like mucosal thickening right chamber sphenoid sinus.. VASCULAR SYSTEM: Visualized major vascular flow voids at skull base are patent OTHER FINDINGS: None . IMPRESSION: Limited exam as above. Redemonstrated is chronic infarct within the distribution of the right posterior cerebral artery better visualized as compared to recent CT scan and new since prior MRI. Chronic right posterior frontoparietal subcortical white matter infarct with moderate diffuse and confluent chronic periventricular white matter ischemic changes which extend peripherally into the deep and subcortical white matter both cerebral hemispheres. Scattered chronic bilateral basal nuclei lacunar type infarcts. Small chronic infarct change in the left cerebellum also again noted. Moderate generalized volume loss. No enhancing parenchymal nor extra-axial masses or collections seen on this noncontrast study. No evidence of unusual meningeal enhancement
[2019-01-08] MEDS: Oxycodone/Acetaminophen 5/325 mg Tab PO PRN ×2 (16:55→21:55)
--- NOTE | 2019-01-08 23:40 | CON ---
DATE: 01/08/2019 CARDIOLOGY CONSULTATION REASON FOR CONSULTATION: Syncopal episode. 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 The patient stated that he was sitting in front of his computer when he felt a little woozy. He had to stand up and open the kitchen door because he heard his friend downstairs knocking on his door. At this point, the patient collapsed to the floor and lost consciousness. The patient assumed that he hit his left side of the chest against a chair, and he is experiencing left-sided rib pain. The patient has no known history of coronary artery disease. His cardiac catheterization was performed twice in 2016 and 2017 which revealed unremarkable coronary circulation and normal ejection fraction. An echo at that time revealed mild aortic insufficiency. The patient does not recall experiencing palpitation during the fall. Denies injuring his head and denies any incontinence or tongue biting. SOCIAL HISTORY: The patient quit smoking 40 years ago. He lives by himself. His friend lives in the first floor apartment. MEDICATIONS: Aspirin 81 mg once a day, Lopressor 25 mg once a day, and Zestril 10 mg once a day. REVIEW OF SYSTEMS: No nausea or vomiting. No fevers or chills. No retrosternal chest pain and no palpitation. PHYSICAL EXAMINATION: GENERAL: The patient is an elderly male, who does not appear to be in acute distress. VITAL SIGNS: Blood pressure 129/82, heart rate 77, temperature 99.1, respirations 20. HEENT: Normocephalic. CHEST: Clear. HEART: S1 and S2, regular. ABDOMEN: Soft. EXTREMITIES: No edema. LABORATORY STUDIES: Today's hemoglobin and hematocrit are 13 and 39.7. White count 10.1, platelet count 194,000. Today's SMA-7: Sodium 137, potassium 3.7, chloride 99, CO2 is 27, glucose 108, BUN 16, creatinine 1.2. Two sets of troponins are negative. Lipid profile and thyroid profile are within normal limits. Head CT scan without contrast; chronic right posterior cerebral artery territory infarct, chronic right superior frontal subcortical infarct, a small left cerebellar chronic infarct unchanged. Chest CT scan revealed evidence of left 9th and possibly 10th rib fracture deformities nondisplaced. Scattered emphysematous changes. Mild bibasilar atelectasis. Heterogeneous appearing thyroid gland and recommend correlation with outpatient thyroid ultrasound. EKG revealed sinus rhythm with frequent PVCs and fusion complexes, possible left atrial enlargement, left axis deviation, nonspecific T-wave changes, prolonged QT interval. Echocardiography study revealed normal ejection fraction and moderate aortic insufficiency. ASSESSMENT: 1. Syncopal episode. 2. Left ninth and tenth rib fractures. 3. Old right posterior cerebral artery territory infarct. 4. Hypertension. 5. Emphysema. RECOMMENDATIONS: Continue current aspirin 81 mg once a day, Lopressor 25 mg twice a day, and Zestril 10 mg once a day. I will follow carotid Doppler results. The case was discussed with Dr. Kavin Combs, primary physician. The patient will be scheduled for brain MRI. Pablito Arnold MD
[2019-01-09] MEDS: Nitroglycerin 2% Ointment Foilpak UD TOP SCH ×5 (02:50→22:04)
--- NOTE | 2019-01-09 06:16 | HP ---
HISTORY OF PRESENT ILLNESS: This patient is a 78-year-old male. The patient has history of hypertension, arthritis, and COPD. The patient came to the emergency room because the patient had syncopal episode this morning while the patient was on the computer, but the patient just passed out, and when the patient stated that at first had a seizure, the patient stated that he felt dizzy, and it feels like in his left side of the thorax. Now, the patient denies any shortness of breath or palpitation, however, the patient is still complaining of some pain to the left side of the chest with breathing. ALLERGIES: THE PATIENT HAS NO KNOWN ALLERGIES. SOCIAL HISTORY: The patient has history of smoking, but has stopped. No history of alcohol abuse, and also the patient has history of arthritis. FAMILY HISTORY: There is no inherited disease. REVIEW OF SYSTEMS: The patient has been having some left-sided pain in the lower back, lower portion of the thorax which increased with deep breathing and denies any shortness of breath at rest. CARDIOVASCULAR: The patient denies any chest pain and no palpitation. GASTROINTESTINAL: No nausea or vomiting. GENITOURINARY: The patient admits to having some urinary stress incontinence. NEUROLOGY: The patient is complaining of pain to the left side and denies any dizziness at this point. PHYSICAL EXAMINATION: GENERAL: The patient is alert, awake, and oriented. The patient denies any loss of memory. (04:22). The patient is obese. VITAL SIGNS: Blood pressure 135/70, pulse is 89, respirations 20, and temperature is 98.8. HEENT: Normocephalic, but nod. The patient is wearing denture. NECK: Supple. No JVD. No carotid bruit. LUNGS: Clear. It has some fine rales at the bases, and there is tenderness with pressure to the posterior lateral aspect of the lower ribs. ABDOMEN: Soft. Positive bowel sounds. No tenderness. EXTREMITIES: There is tenderness in the right hip with motion which is also old. LABORATORY DATA: The patient had tests done. The labs showed that WBC was 11.9, hemoglobin 13, hematocrit 44.5, and platelet level of 98. Chemistry showed that sodium was 139, potassium 4.1, chloride 101, bicarb is 27, BUN is 16, creatinine 1.4, and GFR is 59, and glucose 107, calcium 9.8, AST 25, ALT 21, alkaline phosphatase 88. Also, the patient had a head CT that showed a chronic right EDUCATION NURSE territory infarct with his prior study, chronic right superior frontal subcortical infarct, and small left cerebellar chronic infarct unchanged. he gets chronic white matter ischemic changes, progressed since prior study. . The chest CT showed that ileus. The enhancement just in hilar vascular structures have been grossly remarkable. The heart appeared within normal limits. There were scattered emphysematous changes and mild bibasilar atelectasis. There was evidence of a an left ninth and partially tenth rib fracture deformities, nondisplaced. ASSESSMENT AND PLAN: The patient is admitted with diagnosis of syncope, rib fracture, hypertension, arthritis, obesity, dyslipidemia, and chronic obstructive pulmonary disease. The patient had a consult with Dr. Arnold and also the patient had a consult with Dr. Mitchell, Neurology. markers should be ordered, like echocardiogram, carotid Doppler, and MRI/MRA of the brain. Kavin Combs MD
[2019-01-09] MEDS: Oxycodone/Acetaminophen 5/325 mg Tab PO PRN ×3 (08:31→22:06)
--- NOTE | 2019-01-09 13:29 | VASCLAB ---
Date of service: 01/08/2019 PROCEDURE: Carotid Duplex Exam. HISTORY: SYNCOPE COMPARISON: None available. TECHNIQUE: Grayscale and duplex Doppler evaluation of the cervical carotid and vertebral arteries were performed. The common carotid, carotid bifurcations and cervical Internal Carotid Artery (ICA) and proximal External Carotid Artery (ECA) were evaluated. The vertebral arteries were evaluated for gross patency and flow direction. Report prepared by Jacques Weinberg, BS, RVT FINDINGS: RIGHT CAROTID ARTERIES: 1. Common Carotid Artery: No significant focal plaque formation of the right common carotid artery. Maximum Peak Systolic velocity: 89 cm/sec: End-diastolic velocity 12 cm/sec. 2. Carotid Bifurcation: plaque formation. Maximum Peak Systolic velocity: 69 cm/sec: End-diastolic velocity 9 cm/sec. 3. Internal Carotid Artery: Plaque description: 3.1. Proximal Segment: Peak systolic velocity 107 cm/sec: End-diastolic velocity 12 cm/sec - % stenosis 0-15% 3.2. Middle Segment: Peak systolic velocity 53 cm/sec: End-diastolic velocity 17 cm/sec - % stenosis 0-15% 3.3. Distal Segment: Peak systolic velocity 65 cm/sec: End-diastolic velocity 18 cm/sec - % stenosis 0-15% 4. External Carotid Artery: No significant focal plaque formation. Peak systolic velocity 125 cm/sec 5. ICA/CCA Ratio: 1.2 LEFT CAROTID ARTERIES: 1. Common Carotid Artery: No significant focal plaque formation of the left common carotid artery. Maximum Peak Systolic velocity: 125 cm/sec: End-diastolic velocity 19 cm/sec. 2. Carotid Bifurcation: plaque formation. Maximum Peak Systolic velocity: 131 cm/sec: End-diastolic velocity 19 cm/sec. 3. Internal Carotid Artery: Plaque description: 3.1. Proximal Segment: Peak systolic velocity 75 cm/sec: End-diastolic velocity 19 cm/sec - % stenosis 0-15% 3.2. Middle Segment: Peak systolic velocity 75 cm/sec: End-diastolic velocity 24 cm/sec - % stenosis 0-15% 3.3. Distal Segment: Peak systolic velocity 61 cm/sec: End-diastolic velocity 21 cm/sec - % stenosis 0-15% 4. External Carotid Artery: No significant focal plaque formation. Peak systolic velocity 93 cm/sec 5. ICA/CCA Ratio: 1.0 VERTEBRAL ARTERIES: 1. Right Vertebral Artery: The right vertebral artery flow direction is antegrade. 2. Left Vertebral Artery: The left vertebral artery flow direction is antegrade. OTHER FINDINGS: 1. Right Brachial Blood pressure: 120 mmHg. 2. Left Brachial Blood pressure: mmHg. 3. No atherosclerotic calcification present IMPRESSION: RIGHT: Duplex scan does not suggest hemodynamically significant stenosis of the right extracranial carotid arteries. LEFT: Duplex scan does not suggest hemodynamically significant stenosis of the left extracranial carotid arteries.
[2019-01-09] MEDS: Lidocaine 5% Patch TD SCH (14:32)
--- NOTE | 2019-01-09 17:38 | PN ---
DATE: 01/09/2019 SUBJECTIVE: The patient denies any dizziness or palpitation. No reported arrhythmia. PHYSICAL EXAMINATION: VITAL SIGNS: Blood pressure 124/70, heart rate 73, temperature 98.2, respirations 20. HEENT: Normocephalic. CHEST: Clear. HEART: S1 and S2. Regular. ABDOMEN: Soft. EXTREMITIES: Trace leg edema. LABORATORY DATA: Echocardiographic study performed yesterday revealed ejection fraction in the range of 50 to 55% with grade 1 abnormal relaxation pattern and moderate aortic insufficiency. A brain MRI revealed chronic infarct within the distribution of the right posterior cerebral artery, chronic posterior frontoparietal subcortical white matter infarct with chronic periventricular white matter ischemic changes. Chronic bilateral basal nuclei lacunar type infarcts and small chronic infarct changes in the left cerebellum. ASSESSMENT: 1. Syncopal episode. 2. Multiple infarcts involving the right posterior cerebral artery territory, chronic right posterior frontoparietal subcortical infarct. Bilateral basal nuclei lacunar infarcts and small chronic infarct in the left cerebellum. 3. Moderate aortic insufficiency. 4. Diastolic left ventricular dysfunction. 5. Hypertension. RECOMMENDATIONS: Continue aspirin 81 mg once a day, Lopressor 25 mg twice a day, Zestril 10 mg once a day. I will follow EEG results. Pablito Arnold MD
--- NOTE | 2019-01-09 20:12 | CP.PCM.CON ---
History of Present Illness - History of Present Illness History of Present Illness: Cardiology/EP Consult Re: Syncope Chart/imaging reviewed Patient interviewed and examined 78 year old admitted with a history of fall and loss of consciousness for minutes while sitting on a Computer This was preceded by dizziness and feeling 'hot'' denied headache vomiting seizures tongue bite incontinence; chest pain Palpitations dyspnea He had a remote episode similarly in the past Past medical: Systemic hypertension Hyperlipidemia Cerbrovascular disease TIA Medications: reviewed Allergies: none Denied smoking; alcohol abuse or substance use Exam No distress No pallor Normal venous pressures No neck bruits ?PMI Normal heart sounds No edema EKG: sinus; QTc ~ 500ms; Left atrial enlargement PVC Echo: LV ejection fraction 35-40% Aortic sclerosis CT scan: calcified coronaries Labs: K+/Mg++/Ca++4/2./9.8 Troponin 0.01 Assessment and Plan Mr. Leon presented with an episode of transient loss of consciousness suggestive of a hemodynamic collaspe (Cf. Neurological event) The mechanism is unclear; the frequent PVC and Left ventricular systolic dysfunction and coronary disease on the Echo/CT chest and the QTc interval ALL suggests an underlying myocardial substrate susceptible to ventricular tachyarrhythmias (VT VFib) Ideally needs a Tilt table study, Cardiac Cath EP study and a loop recorder if the work up is negative DW patient procedures prognosis risks options; he verbalized understanding BENJAMIN Combs Past Patient History - Infectious Disease Hx of Infectious Diseases: None - Past Medical History & Family History Past Medical History?: Yes - Past Social History Smoking Status: Never Smoked - CARDIAC Hx Hypercholesterolemia: Yes Hx Hypertension: Yes - PULMONARY Hx Respiratory Disorders: No - NEUROLOGICAL Hx Transient Ischemic Attacks (TIA): Yes (2013) - HEENT Hx HEENT Problems: Yes Hx Blind: Yes (L Eye) - RENAL Hx Chronic Kidney Disease: No - ENDOCRINE/METABOLIC Hx Endocrine Disorders: No - HEMATOLOGICAL/ONCOLOGICAL Hx Blood Disorders: No - INTEGUMENTARY Hx Dermatological Problems: No - MUSCULOSKELETAL/RHEUMATOLOGICAL Hx Falls: No - GASTROINTESTINAL Hx Gastrointestinal Disorders: No - GENITOURINARY/GYNECOLOGICAL Hx Genitourinary Disorders: No - PSYCHIATRIC Hx Substance Use: No - SURGICAL HISTORY Hx Surgeries: Yes Hx Eye Surgery: Yes (left eye) Other/Comment: left eye surgery s/p blunt trauma - ANESTHESIA Hx Anesthesia: Yes Hx Anesthesia Reactions: No Hx Malignant Hyperthermia: No Meds Allergies/Adverse Reactions: Allergies Allergy/AdvReac Type Severity Reaction Status Date / Time No Known Allergies Allergy Verified 06/17/17 09:40 - Medications Medications: Current Medications Aspirin (Ecotrin) 81 mg PO DAILY [facility] Last Admin: 01/09/19 09:59 Dose: 81 mg Lidocaine (Lidoderm) 1 ea TD DAILY [facility] Last Admin: 01/09/19 14:32 Dose: 1 ea Lisinopril (Zestril) 10 mg PO DAILY [facility] Last Admin: 01/09/19 09:59 Dose: 10 mg Metoprolol Tartrate (Lopressor) 25 mg PO BID [facility] Last Admin: 01/09/19 17:02 Dose: 25 mg Nitroglycerin (Nitro-Bid 2% Oint) 0.5 ea TOP Q6H [facility] Last Admin: 01/09/19 14:00 Dose: Not Given Oxycodone/Acetaminophen (Percocet 5/325 Mg Tab) 1 tab PO Q6H PRN PRN Reason: Pain, moderate (4-7) Stop: 01/10/19 16:32 Last Admin: 01/09/19 16:57 Dose: 1 tab Results - Vital Signs Recent Vital Signs: Last Vital Signs Temp 97.9 F 01/09/19 15:35 Pulse 62 01/09/19 16:00 Resp 20 01/09/19 15:35 BP 133/74 01/09/19 17:02 Pulse Ox 94 L 01/09/19 15:35 - Labs Result Diagrams: 01/08/19 09:23 01/08/19 08:43
--- NOTE | 2019-01-10 02:41 | PN ---
DATE: 01/09/2019 SUBJECTIVE: Today, the patient is alert and oriented. Still complaining of some pain to the posterior left side of the chest at the site of the nondisplaced fracture of the ribs. The patient denies any dizziness or shortness of breath. PHYSICAL EXAMINATION: VITAL SIGNS: The patient has blood pressure of 133/74, pulse 68, respirations 20, and temperature 97.9. NECK: Supple. No JVD. LUNGS: There is some rhonchi noted, which is old. HEART: Regular rate and rhythm and positive murmur. ABDOMEN: Soft, obese, nontender. No palpable mass. EXTREMITIES: There is no edema, but there is some tenderness at the right hip. NEURO: There is an unsteady gait. LABORATORY DATA: The patient's blood work was done yesterday with WBC of 10.1, hemoglobin 13, hematocrit 39.7, and platelets were 194. PLAN: Plan was to have the patient a tilt table test, was called and has done this afternoon the tilt table test, and it was negative as per Dr. Verdugo, the energy systems laboratory director, but also he was so urgent to put a loop recorder. I have discussed with the patient this afternoon, and the patient is not agreeable yet, so we discussed that again with the patient in the morning. The case was reviewed and discussed with Madelin Castorena, the nurse practitioner in the morning and this afternoon with Dr. Verdugo, energy systems laboratory director. Kavin Combs MD
[2019-01-10] MEDS: Nitroglycerin 2% Ointment Foilpak UD TOP SCH ×4 (02:44→21:08)
[2019-01-10 08:32] LABS: BASO # 0.1 K/uL (0.0-0.2); BASO % 0.5 % (0.0-2.0); EOS # 0.2 K/uL (0.0-0.7); EOS % 1.6 % (0.0-4.0); HEMOGLOBIN 13.1 g/dL (12.0-18.0); LYMPH % 9.2 % (20.0-40.0); MEAN CELL VOLUME 100.3 fL (80.0-94.0); MEAN CORPUSCULAR HEMOGLOBIN 32.6 pg (27.0-31.0); MEAN CORPUSCULAR HGB CONC 32.5 g/dL (33.0-37.0); MEAN PLATELET VOLUME 7.6 fL (7.2-11.7); MONO # 0.3 K/uL (0.0-0.8); NEUT % 85.7 % (50.0-75.0); PLATELET COUNT 186 K/uL (130-400); RBC 4.02 Mil/uL (4.40-5.90); RED CELL DISTRIBUTION WIDTH 14.7 % (11.5-14.5); WHITE BLOOD COUNT 10.5 K/uL (4.8-10.8)
[2019-01-10 09:00] LABS: ALB/GLOB RATIO 1.1 (1.0-2.1); ALBUMIN 3.9 g/dL (3.5-5.0); CALCIUM 9.6 mg/dl (8.6-10.4)
[2019-01-10] MEDS: Oxycodone/Acetaminophen 5/325 mg Tab PO PRN (09:30)
[2019-01-10] MEDS: Lidocaine 5% Patch TD SCH (09:32)
[2019-01-10 09:41] LABS: EOSINOPHIL 2 % (0-4); LYMPHOCYTE 13 % (20-40); MONOCYTE 2 % (0-10); NEUTROPHIL 83 % (50-75); PLATELET ESTIMATE NORMAL (NORMAL); TOTAL CELLS COUNTED 100
[2019-01-10] MEDS ORDERED: Iodixanol 320 MG/ML 100 ML BOTTLE IV ONE ×2 (12:50→13:57)
--- NOTE | 2019-01-10 14:55 | CT ---
Date of service: 01/10/2019 PROCEDURE: CT Chest with contrast (Pulmonary Angiogram) HISTORY: r/o PE COMPARISON: None available. TECHNIQUE: Axial computed tomography images were obtained of the chest in the pulmonary arterial phase of enhancement. Coronal and sagittal reformatted images were created and reviewed. Intravenous contrast dose: Radiation dose: Total exam DLP = 653.78 mGy-cm. This CT exam was performed using one or more of the following dose reduction techniques: Automated exposure control, adjustment of the mA and/or kV according to patient size, and/or use of iterative reconstruction technique. FINDINGS: PULMONARY ARTERIES: Unremarkable. No pulmonary embolism. AORTA: No acute findings. No thoracic aortic aneurysm. Mild tortuosity of the aorta. LUNGS: Bibasilar infiltrates. Additional scattered areas of bilateral discoid atelectasis. PLEURAL SPACES: Unremarkable. No effusion or pneumothorax. HEART: Unremarkable. No cardiomegaly. No significant pericardial effusion. LYMPH NODES: No lymphadenopathy. BONES, CHEST WALL: Unremarkable. No fracture or destructive lesion OTHER FINDINGS: Incompletely imaged probable simple bilateral renal cysts. Probable benign right axillary lymph nodes. IMPRESSION: Bibasilar infiltrates. No pulmonary embolism.
[2019-01-10] MEDS: Sodium Chloride 0.45% 1,000 ML IV SCH (16:57)
--- NOTE | 2019-01-10 17:22 | PN ---
DATE: 01/10/2019 SUBJECTIVE: The patient denies any chest pain. He is in sinus tachycardia on the monitor with occasional PVCs with fusion. OBJECTIVE: VITAL SIGNS: Blood pressure 146/87, heart rate 76, temperature 98.1, and respirations 20. HEENT: Normocephalic. CHEST: Clear. HEART: S1 and S2, regular. EXTREMITIES: Trace leg edema. LABORATORY DATA: Today's SMA-7 is within normal limits except for chloride of 97 and BUN of 22. Today's hemoglobin and hematocrit 15.1 and 40.3. White count and platelet count are within normal limits. Official report of carotid Doppler does not suggest hemodynamically significant disease. Tilt table performed by Dr. Verdugo, the hip hop dance instructor today was reported to be negative. The patient was offered an event recorder, but he refused. ASSESSMENT: 1. Syncopal episode. 2. History of multiple cerebrovascular accidents involving the right posterior cerebral artery territory, the right posterior frontoparietal subcortical area, bilateral basal ganglia, and the left cerebellum. 3. Moderate aortic insufficiency. 4. Hypertension. 5. Diastolic heart dysfunction. RECOMMENDATIONS: Case was discussed with the nurse practitioner. Continue aspirin 81 mg once a day, Lopressor 25 mg twice a day, and Zestril 10 mg once a day. Followup chest CT angio that was performed today. The patient still refuses loop recorder. Pablito Arnold MD
--- NOTE | 2019-01-11 00:06 | CARD ---
APPROVED REPORT Date of service: 01/10/2019 EKG Measurement Heart [id number] <Conclusion> Sinus rhythm with frequent premature ventricular complexes Left anterior fascicular block Abnormal ECG
--- NOTE | 2019-01-11 01:50 | PN ---
DATE: 01/10/2019 SUBJECTIVE: The patient today is alert, awake and oriented. The patient was seen and examined. The patient denied any shortness of breath, no cough, but still complaining of some pain to the left side of the chest wall, which is partially relieved with Lidoderm patch. The patient denied any chest pain. No palpitations. PHYSICAL EXAMINATION: VITAL SIGNS: Blood pressure is 114/68, pulse is 78, respiration is 18, temperature 98.7, and O2 saturation on room air was 93%. NECK: Supple. LUNGS: Has some fine rales at the base. HEART: Regular rate and rhythm. Positive murmur. ABDOMEN: Soft, nontender. CHEST: There is some tenderness with pressure over the left side of the chest like pressure. EXTREMITIES: There is no edema. Mild tenderness in the right hip on motion. LABORATORY DATA: The patient this morning was found to be tachycardic at the rate of 105 to 115. We have ordered CT angio of the chest that showed bibasilar infiltrates, but no pulmonary embolism. There is an incompletely imaged probable simple bilateral renal cyst with benign right axillary lymph node. Also, the patient has some blood tests. The blood tests show that the WBC is 10.5, hemoglobin 13.1, hematocrit 40.3, and platelets are 186. Chemistry showed that the sodium 135, potassium 3.8, chloride 97, bicarb is 30, BUN 22, creatinine 1.4. AST 29, ALT 25, alkaline phosphatase 92. ASSESSMENT AND PLAN: The plan is as we did a CT of the chest and also the patient is still with the event monitor or loop recorder. The case was discussed with Dr. Arnold. No need for cardiac catheterization as per Dr. Arnold. So, we are going to re-hydrate the patient tonight and blood work tomorrow. We are going to evaluate the patient in the morning. The case was discussed with Madelin Castorena, the nurse practitioner. Kavin Combs MD
[2019-01-11] MEDS: Nitroglycerin 2% Ointment Foilpak UD TOP SCH ×4 (02:57→21:46)
[2019-01-11] MEDS: Sodium Chloride 0.45% 1,000 ML IV SCH (06:50)
[2019-01-11 08:05] LABS: BLOOD UREA NITROGEN 16 mg/dL (9-20); CALCIUM 8.9 mg/dl (8.6-10.4); GFR NON-AFRICAN AMERICAN 59
[2019-01-11 08:56] LABS: B-TYPE NATRIURETIC PEPTIDE 2100 pg/mL (0-900)
--- NOTE | 2019-01-11 08:58 | EEG ---
DATE: 01/09/2019 REQUESTING PHYSICIAN: Dr. Gaytan. REASON FOR THE REQUEST: Syncope. MEDICATIONS: Aspirin and Lopressor. TECHNIQUE: Routine electroencephalogram performed with Sporthold. Electrodes were applied according to a 10-20 Internal Placement System; impedances were less than 5 kilohms. STUDY START TIME: 09:20 a.m. STUDY END TIME: 09:43 a.m. TOTAL RECORDING TIME: 23 minutes. FINDINGS: During the awake state, the background activity showed an average of 9 Hz in the posterior head region, normally reactive to eye open and eye closure. In the anterior head region, frequency were in the better range. The EEG was properly organized. The drowsiness was characterized by diffuse bilateral attenuation with frequency dropping into 6 to 7 Hz range. That was seen at 09:27 a.m. Sleep was not seen. Hyperinflation was not performed. Photic stimulation was performed and there were no changes in the record. There was mid amplitude slowing in the right frontal central region that was mainly seen during drowsiness. IMPRESSION: This is an abnormal EEG record that demonstrates the presence of a focal cortical abnormality involving the right frontal central region. This is in keeping with a structural abnormality in the same area. This should be correlated with the patient's brain imaging. Of note, the EEG was markedly artifactual. However, I do believe there is a focal cortical abnormality involving the right frontal central region. If clinically appropriate, the patient may benefit from an inpatient video-EEG monitor study or from repeat a routine electroencephalogram. Angel Grimaldo MD [facility]
[2019-01-11] MEDS: Lidocaine 5% Patch TD SCH (09:07)
[2019-01-11] MEDS ORDERED: Magnesium Oxide 400 mg Tab UD PO STA (09:21)
[2019-01-11] MEDS ORDERED: Sodium Chloride 0.9% 1,000 ML IV SCH ×2 (09:30→17:32)
[2019-01-11] MEDS: Metoprolol 1 mg/ml Inj IVP ONE ×2 (10:10→10:14)
[2019-01-11] MEDS: Piperacill/Tazo 3.375gm in Dex 3.375 GM/50 ML BAG IVPB SCH ×3 (12:28→22:00)
--- NOTE | 2019-01-11 13:33 | RAD ---
Date of service: 01/11/2019 HISTORY: febrile COMPARISON: Comparison is made with 06/17/2017 FINDINGS: LUNGS: No evidence of new infiltrate or consolidation in the lungs. PLEURA: No significant pleural effusion identified, no pneumothorax apparent. CARDIOVASCULAR: No aortic atherosclerotic calcification present. Normal cardiac size. No pulmonary vascular congestion. OSSEOUS STRUCTURES: No significant abnormalities. VISUALIZED UPPER ABDOMEN: Normal. OTHER FINDINGS: None. IMPRESSION: No definite evidence of pneumonia.
--- NOTE | 2019-01-11 14:07 | RAD ---
Date of service: 01/11/2019 HISTORY: Evaluate for pneumonia COMPARISON: 01/11/2019 TECHNIQUE: Chest PA and lateral FINDINGS: LINES AND TUBES: None. LUNG AND PLEURA: The lungs are well inflated. There is subsegmental atelectasis in the left lower lobe. No pleural effusion or pneumothorax. HEART AND MEDIASTINUM: The heart is not enlarged. No aortic atherosclerotic calcifications present. The hilar and mediastinal contours are within normal limits. SKELETAL STRUCTURES: The bony structures are within normal limits for the patient's age. There is mild dextroscoliosis in the thoracic spine. VISUALIZED UPPER ABDOMEN: Normal. OTHER FINDINGS: None. IMPRESSION: Subsegmental atelectasis in the left lower lobe. Superimposed pneumonia cannot be excluded. Follow-up is recommended.
[2019-01-11] MEDS ORDERED: Azithromycin 500 MG in Sodium Chloride 0.9% 250 ML IVPB SCH (14:30)
[2019-01-11 18:00] LABS: ABG ALLEN TEST POS; ARTERIAL BLOOD GAS HCO3 21.7 mmol/L (21-28); ARTERIAL BLOOD GAS HEMOGLOBIN 12.6 g/dL (11.7-17.4); ARTERIAL BLOOD GAS O2 SAT 93.1 % (95-98); ARTERIAL BLOOD GAS PCO2 28 mm/Hg (35-45); ARTERIAL BLOOD GAS PH 7.44 (7.35-7.45); ARTERIAL BLOOD GAS PO2 57 mm/Hg (80-100); ARTERIAL BLOOD GAS TCO2 19.9 mmol/L (22-28)
--- NOTE | 2019-01-11 18:31 | PN ---
DATE: 01/11/2019 SUBJECTIVE: The patient is febrile and chilly today. He is experiencing productive cough. He denies any substernal chest pain, palpitation or dizziness. Monitor revealed sinus rhythm with ventricular bigeminy. PHYSICAL EXAMINATION: VITAL SIGNS: Blood pressure 110/67, heart rate 102.1, respirations . HEENT: Normocephalic. CHEST: Diminished breath sounds over the bases. HEART: S1 and S2 regular. EXTREMITIES: Trace leg edema. LABORATORY DATA: SMA-7 is within normal limits except for sodium of 131. A portable chest x-ray done today revealed borderline cardiomegaly with prominent bronchovascular markings. Yesterday's EKG revealed sinus rhythm with frequent PVCs, left anterior fascicular block; and today's EKG revealed sinus rhythm with ventricular bigeminy. ASSESSMENT: 1. Syncopal episode. 2. Runs of ventricular bigeminy. 3. Fever, rule out underlying sepsis. 4. Hyponatremia. 5. Hypertension. 6. Diastolic left ventricular dysfunction. 7. 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 RECOMMENDATIONS: I did review the old records. The most recent cardiac cath was in 04/2017 with unremarkable secretions, possibility of microvascular disease was considered. The patient had normal ejection fraction at this time. Continue current IV Zithromax, aspirin 81 mg once a day. Lopressor was increased to 50 mg twice a day, Zosyn was started at 3.375 g intravenously every 6 hours. Blood cultures were taken. The patient will go for chest x-ray AP and lateral. Pablito Arnold MD
[2019-01-11] MEDS: Oxycodone/Acetaminophen 5/325 mg Tab PO PRN (18:33)
--- NOTE | 2019-01-12 01:23 | PN ---
DATE: 01/11/2019 SUBJECTIVE: Today, the patient is alert and awake and sitting in edge of the bed and complaining of some congestive cough. No shortness of breath at rest. Complaining of some pain to the posterior left side of the chest at the site of rib fracture. The patient was found this morning having a temperature of 102.1. The patient denied any chest pain or palpitation. No dysuria. PHYSICAL EXAMINATION: VITAL SIGNS: The patient has a blood pressure of 109/65, pulse 72, respiration 20, temperature 98.1. NECK: Supple. LUNGS: Has some rales bilaterally. HEART: Regular rate and rhythm and positive murmur. Positive infrequent extra beats. ABDOMEN: Soft, nontender. No palpable mass but obese. EXTREMITIES: There is tenderness to the right hip. LABORATORY DATA: The patient has chemistries done today, show that sodium 131, potassium 3.9, chloride 99, BUN is 16, creatinine 1.2 and GFR is 69. ProBNP is 2100. ASSESSMENT AND PLAN: Plan is that the patient is put on empiric antibiotic like Zosyn. ID consult ordered. Also, we are going to decrease the intravenous fluid. The intravenous fluid will be decreased to 50 mL per hour, and also antibiotic will be added beside the Zosyn, azithromycin is also ordered. The case was reviewed and discussed with Madelin Castorena, nurse practitioner. Kavin Combs MD
[2019-01-12] MEDS: Piperacill/Tazo 3.375gm in Dex 3.375 GM/50 ML BAG IVPB SCH ×4 (05:30→22:40)
[2019-01-12 08:35] LABS: BASO # 0.1 K/uL (0.0-0.2); BASO % 0.7 % (0.0-2.0); EOS # 0.1 K/uL (0.0-0.7); EOS % 1.8 % (0.0-4.0); HEMOGLOBIN 11.7 g/dL (12.0-18.0); LYMPH # 1.2 K/uL (1.0-4.3); LYMPH % 15.3 % (20.0-40.0); MEAN CELL VOLUME 99.2 fL (80.0-94.0); MEAN CORPUSCULAR HGB CONC 33.2 g/dL (33.0-37.0); MEAN PLATELET VOLUME 7.2 fL (7.2-11.7); MONO # 0.9 K/uL (0.0-0.8); MONO % 11.7 % (0.0-10.0); NEUT # 5.7 K/uL (1.8-7.0); NEUT % 70.5 % (50.0-75.0); RBC 3.56 Mil/uL (4.40-5.90); RED CELL DISTRIBUTION WIDTH 14.4 % (11.5-14.5); WHITE BLOOD COUNT 8.1 K/uL (4.8-10.8)
[2019-01-12 08:49] LABS: CALCIUM 9.5 mg/dl (8.6-10.4)
[2019-01-12] MEDS: Magnesium Oxide 400 mg Tab UD PO SCH (09:43)
[2019-01-12] MEDS: Lidocaine 5% Patch TD SCH (09:43)
--- NOTE | 2019-01-12 21:24 | PN ---
DATE: 01/12/2019 SUBJECTIVE: Today, the patient is alert, awake and oriented x3. The patient was seen and examined, lying on bed. Denied any shortness of breath or chest pain. The pain on the left side seems to be subsided and he denies any chest pain or shortness of breath. PHYSICAL EXAMINATION: VITAL SIGNS: Blood pressure of 128/81, pulse 70, respirations 20, temperature 98. NECK: Supple. LUNGS: Some rales bilaterally, improving. HEART: Regular in rhythm. Positive murmur. ABDOMEN: Soft and nontender. No palpable mass. CHEST: There is a mild tenderness on the left side at the site of the fracture. EXTREMITIES: No edema and no tenderness. LABORATORY DATA: Shows that WBC is 8.1, hemoglobin 11.7, hematocrit 35.4, and platelet 173. Chemistry showed sodium 126, potassium 4.2, chloride 100, bicarb 39, BUN 16, creatinine 1.5, and calcium 9.5. The urine has gram-negative rods. PLAN: The plan is he is going to continue on antibiotic therapy and aggressive . Kavin Combs MD
--- NOTE | 2019-01-12 21:34 | PN ---
DATE: 01/12/2019 SUBJECTIVE: The patient denies chest pain, palpitations or dizziness. PHYSICAL EXAMINATION: VITAL SIGNS: Blood pressure 148/74, heart rate 70, temperature 97.8, respirations 20. HEENT: Normocephalic. CHEST: Diminished breath sounds over the bases. HEART: S1 and S2 regular. EXTREMITIES: Trace leg edema. LABORATORY DATA: Today's hemoglobin and hematocrit are 11.7 and 35.4. White count and platelet count are within normal limits. Today's SMA-7 is entirely within normal limits. Urine culture is positive for Gram-negative rods, more than 100,000 colonies. The final identification is still pending. Blood culture negative after 24 hours. Repeat chest x-ray yesterday, PA and lateral, revealed subsegmental atelectasis in the left lower lobe. Superimposed pneumonia cannot be excluded. Followup is recommended. ASSESSMENT: 1. Syncopal episode. 2. Improved ventricular ectopy. 3. History of multiple cerebrovascular accidents. 4. Gram-negative urinary tract infection; rule out urosepsis. 5. Hypertension. RECOMMENDATIONS: Continue Cozaar 25 mg once a day, aspirin 81 mg once daily, Lasix 20 mg intravenous twice a day, Lopressor 50 mg twice a day, Percocet 1 tablet every 12 hours p.r.n., IV Zosyn 3.375 g every 6 hours. Pablito Arnold MD
[2019-01-13] MEDS: Piperacill/Tazo 3.375gm in Dex 3.375 GM/50 ML BAG IVPB SCH ×4 (05:02→23:30)
[2019-01-13] MEDS: Magnesium Oxide 400 mg Tab UD PO SCH (10:06)
[2019-01-13] MEDS: Lidocaine 5% Patch TD SCH (10:07)
--- NOTE | 2019-01-13 21:59 | PN ---
DATE: 01/13/2019 SUBJECTIVE: The patient denies any fever or chills. His wheezing is improved except for mild cough. No retrosternal chest pain. PHYSICAL EXAMINATION: VITAL SIGNS: Blood pressure 127/79, heart rate 60, temperature 97.9, and respirations 18. HEENT: Normocephalic. CHEST: Right basilar rhonchi and wheezing. HEART: S1 and S2, regular. ABDOMEN: Soft. EXTREMITIES: No edema. ASSESSMENT: 1. Status post syncopal episode. 2. Improved ventricular ectopy. 3. Pneumonia. 4. Gram-negative urinary tract infection. 5. History of multiple cerebrovascular accidents in the past. RECOMMENDATIONS: Continue Cozaar 25 mg once a day, aspirin 81 mg once a day, Lasix 20 mg intravenously twice a day, Lopressor 50 mg twice a day, Zosyn 3.375 g intravenously every 6 hours. Pablito Arnold MD
[2019-01-14 01:42] VITALS: RESP 20
[2019-01-14] MEDS: Piperacill/Tazo 3.375gm in Dex 3.375 GM/50 ML BAG IVPB SCH (05:21)
[2019-01-14 07:37] LABS: BASO # 0.1 K/uL (0.0-0.2); BASO % 0.7 % (0.0-2.0); EOS # 0.3 K/uL (0.0-0.7); LYMPH % 26.2 % (20.0-40.0); MEAN CELL VOLUME 97.8 fL (80.0-94.0); MEAN CORPUSCULAR HEMOGLOBIN 33.5 pg (27.0-31.0); MEAN CORPUSCULAR HGB CONC 34.2 g/dL (33.0-37.0); MEAN PLATELET VOLUME 7.3 fL (7.2-11.7); MONO # 0.5 K/uL (0.0-0.8); MONO % 7.1 % (0.0-10.0); NEUT # 4.6 K/uL (1.8-7.0); NRBC % 0.1 % (0.0-2.0); RBC 3.89 Mil/uL (4.40-5.90); WHITE BLOOD COUNT 7.4 K/uL (4.8-10.8)
[2019-01-14 07:40] VITALS: PULSE 75
--- NOTE | 2019-01-14 08:14 | PN ---
DATE: 01/13/2019 SUBJECTIVE: Today the patient is seen and examined. The patient is alert and awake. No shortness of breath. Denied any pain. No dizziness. No palpitations. PHYSICAL EXAMINATION: VITAL SIGNS: Blood pressure 134/68, pulse 94, respirations 18 to 20, and temperature 97.4. NECK: Supple. LUNGS: Has some fine rales at the bases. HEART: Regular rate and rhythm with a positive murmur. extra systole. ABDOMEN: Soft and nontender. No palpable mass. EXTREMITIES: No edema. LABORATORY DATA: The patient had blood work done from yesterday. PLAN: The plan is that we are going to CBC, CMP and going to repeat a chest x-ray and we are going to continue antibiotic therapy. Kavin Combs MD
[2019-01-14 08:20] LABS: ALBUMIN 3.5 g/dL (3.5-5.0); CALCIUM 9.7 mg/dl (8.6-10.4)
[2019-01-14 08:43] VITALS: BP 130/72; TEMP 97.7; O2SAT 96
[2019-01-14] MEDS: Oxycodone/Acetaminophen 5/325 mg Tab PO PRN (09:54)
[2019-01-14] MEDS: Magnesium Oxide 400 mg Tab UD PO SCH (09:55)
[2019-01-14] MEDS: Lidocaine 5% Patch TD SCH (09:55)
--- NOTE | 2019-01-14 10:11 | RAD ---
Date of service: 01/14/2019 HISTORY: pneumonia COMPARISON: 01/11/2019 TECHNIQUE: Chest PA and lateral FINDINGS: LUNGS: Examination is somewhat limited due to oblique positioning. No infiltrate. PLEURA: No significant pleural effusion identified. No pneumothorax apparent. CARDIOVASCULAR: There is atherosclerotic calcification of the thoracic aorta. Normal cardiac size. No pulmonary vascular congestion. OSSEOUS STRUCTURES: No significant abnormalities. VISUALIZED UPPER ABDOMEN: Normal. OTHER FINDINGS: None. IMPRESSION: No active disease.
[2019-01-14] MEDS ORDERED: Piperacill/Tazo 3.375gm in Dex 3.375 GM/50 ML BAG IVPB SCH (14:00)
--- NOTE | 2019-01-15 00:15 | PN ---
DATE: 01/14/2019 SUBJECTIVE: Today, the patient is alert and awake. The patient was seen and evaluated. The patient is sitting on the chair. Denies any chest pain. No palpitation. No dizziness. No constipation. PHYSICAL EXAMINATION: VITAL SIGNS: The patient has a blood pressure of 120/72, pulse 75, respirations is 20, and temperature 97.7. NECK: Supple. No JVD. LUNGS: There are some fine rales at the bases. HEART: Regular rate and rhythm. Positive murmur. ABDOMEN: Soft and nontender. Positive bowel sounds. EXTREMITIES: There is no edema. LABORATORY DATA: The patient's blood work has shown WBC 7.4, hemoglobin 13, hematocrit 38, and platelet is 227. Chemistry shows that the sodium is 136, potassium 3.6, chloride 95, BUN 14, creatinine 1.7, and glucose was 90. The patient also has a urine culture that was positive for E. coli sensitive to Zosyn. The patient was already on Zosyn. The patient is afebrile. PLAN: The plan is that we are going to consider to discharge the patient home today. Kavin Combs MD
--- NOTE | 2019-01-15 12:50 | DS ---
HISTORY OF PRESENT ILLNESS: This patient is a 78-year-old male with history of hypertension, arthritis, and the patient has history of CVA in the past. The patient came to the emergency room because he had a syncopal episode and the patient has hit the left side of the chest and sustained a nondisplaced fracture of the ribs, and the patient was admitted and the patient stated that he was going to bathroom, but he just passed out and his son came to help him to get up and the patient went to the emergency room. PHYSICAL EXAMINATION: GENERAL: We have found the patient was alert and awake at the time of examination. LUNGS: With some rales bilaterally. HEART: Regular rate and rhythm, but there was frequent extra systole. The patient had different tests done and had a CT of the head that showed old infract and carotid Doppler was insignificant. There was no stenosis and the MRI also was done, but the patient during this had Cardiology consult with Dr. Arnold and also had kettle room helper consult with Dr. Kothari. A tilt table test was done, was negative; however, the patient was developing a lot of PVC including frequent PVC that was considered as V-tach. Suggestion was made by Dr. Kothari, the administration clerk to put event monitor or a loop recorder, but the patient has refused categorically and stated that he is not ready for that at this point. So, the patient during the course of hospitalization, the patient developed a fever of 102.1 and was found to have in the urine E. coli and was sensitive to Zosyn and which the patient was receiving at the time of fever. Now, the patient is doing well, afebrile and the heart is regular, but there is no extra systole and the abdomen is soft. So, the rest of the test is echocardiogram that was unremarkable. So, the patient will go home on Augmentin and magnesium and will continue to receive current medication. The patient will come to see me within one week, but however, the patient was advised to follow with Dr. Kothari, the kettle room helper. Kavin Combs MD
== END 2019-01-14 13:17 | disposition home or self-care (01) | DRG 312 ==
LOC: C.ER 19:08 → C.6T 20:38 → C.9I 01-13 03:34 → C.6T 01-13 03:36
PROVIDERS: ADMIT Specialist; ATTEND Specialist
PROC: 4A02XFZ Measurement of Cardiac Rhythm, External Approach (ICD-10-PCS; principal; 2019-01-09)
PROC: 4A03XB1 Measurement of Arterial Pressure, Peripheral, External Approach (ICD-10-PCS; 2019-01-09)
DX: R55 Syncope and collapse (principal); S22.42XA Multiple fractures of ribs, left side, initial encounter for closed fracture; N39.0 Urinary tract infection, site not specified; I47.2 Ventricular tachycardia; E87.1 Hypo-osmolality and hyponatremia; I10 Essential (primary) hypertension; J43.9 Emphysema, unspecified; B96.20 Unspecified Escherichia coli [E. coli] as the cause of diseases classified elsewhere; I35.1 Nonrheumatic aortic (valve) insufficiency; I49.3 Ventricular premature depolarization; E78.5 Hyperlipidemia, unspecified; E78.00 Pure hypercholesterolemia, unspecified; M19.90 Unspecified osteoarthritis, unspecified site; W22.8XXA Striking against or struck by other objects, initial encounter; Y92.009 Unspecified place in unspecified non-institutional (private) residence as the place of occurrence of the external cause; E66.9 Obesity, unspecified; H54.40 Blindness, one eye, unspecified eye; Z68.30 Body mass index [BMI] 30.0-30.9, adult; Z86.73 Personal history of transient ischemic attack (TIA), and cerebral infarction without residual deficits; Z87.891 Personal history of nicotine dependence